=== PATIENT | female | born 1995 | race Caucasian/White ===

== ENCOUNTER 2019-09-16 14:38 | Emergency (ER) | payer BC, MEDICAID, SELFPAY ==
--- NOTE | ~2019-09-16 | XR_ITS ---
XR chest 2V DATE: 09/16/2019 15:21 INDICATION: Nonproductive cough, shortness of breath, fever TECHNIQUE: PA and lateral views COMPARISON: None FINDINGS: Normal heart size. No hilar or mediastinal enlargement. No pulmonary infiltrate or consolid ation, pleural effusion or pulmonary vascular congestion or pneumothorax. IMPRESSION: No active cardiopulmonary disease Reviewed, dictated and finalized at location B. OMER RELATIONS SPECIALIST
[2019-09-16 14:40] VITALS: BP 121/63; PULSE 123; RESP 30; TEMP 36.1; O2SAT 99
--- NOTE | 2019-09-16 14:44 | ECG_ITS ---
Measurements Intervals [place] Rate: 82 P: 48 [place]: 120 QRS: 56 QRSD: 89 T: 21 QT: 375 QTc: 439 Interpretive Statements SINUS RHYTHM BASELINE ARTIFACT- I, II, AVR NORMAL ECG Electronically Signed On 09-16-2019 19:36:58 TAILING MACHINE OPERATOR by Rob Seymour D.O.
[2019-09-16 14:56] LABS: Basophils Percent Auto 0.1 % (0.2-1.2); Eosinophils Percent Auto 0.1 % (0-4.4); Hematocrit 35.8 % (37.0-47.0); Hemoglobin 12.3 g/dL (12.0-15.0); Immature Granulocyte Absolute 0.08 K/mm3 (0.00-0.031); Immature Granulocyte Percent A 0.6 % (0-0.5); Lymphocytes Absolute Auto 0.65 K/mm3 (0.9-3.2); Lymphocytes Percent Auto 4.9 % (18.3-44.2); Mean Corpuscular HGB Conc 34.4 g/dl (32-36); Mean Corpuscular Hemoglobin 30.6 pg (26-34); Mean Corpuscular Volume 89.1 fl (80-100); Mean Platelet Volume 9.4 fl (7.4-10.4); Monocytes Absolute Auto 0.2 K/mm3 (0.1-0.6); Monocytes Percent Auto 1.7 % (2.6-8.5); Neutrophils Absolute Auto 12.4 K/mm3 (1.3-6.7); Neutrophils Percent Auto 92.6 % (45.5-73.1); Platelet Count Result 232 k/mm3 (150-375); Red Blood Count 4.02 M/mm3 (4.2-5.4); Red Cell Distribution Width 11.9 % (11.5-14.5); White Blood Count 13.3 K/mm3 (4.5-10.0)
[2019-09-16 15:03] LABS: Blood Urea Nitrogen 9 mg/dL (7-17); Calcium 9.5 mg/dL (8.4-10.2); Carbon Dioxide 19 mmol/L (22-30); Chloride 101 mmol/L (98-107); Estimated CRCL calculation 134 ml/min; Estimated Glomerular Filt Rate > 60; Glucose 155 mg/dL (65-105); Sodium 136 mmol/L (137-145)
--- NOTE | 2019-09-16 17:25 | ED.SOB ---
HPI - SOB/Dyspnea General Chief Complaint: Shortness of Breath/Dyspnea Stated Complaint: short of breath Time Seen by Provider: 09/16/19 17:11 Source: patient Mode of arrival: ambulatory Limitations: no limitations History of Present Illness HPI Narrative: The pt is a 24 y/o female who presents to the ED c/o SOB onset three days ago. Pt states that she has a PMHx of asthma, but is not particularly bad. She states that her condition did not improve, so she went to the office of her PAPER MACHINE TENDER, Dr. Magaña, who prescribed Azithromycin and Prednisone. These did not provide her relief. Pt reports hoarseness, cough, sneezing, and rhinorrhea, but denies sore throat. Pt states that she is 28 weeks currently. MD elicited complaint: shortness of breath Pertinent past history: asthma Onset (ago): day(s) (3) Relieving factors: nothing Known history of: asthma Associated symptoms: cough and other (Hoarseness, sneezing, rhinorrhea) Treatment prior to arrival: other (Antibiotics) Related Data Allergies Allergy/AdvReac Type Severity Reaction Status Date / Time No Known Allergies Allergy Verified 05/13/18 17:19 Review of Systems Review of Systems: All systems reviewed & are unremarkable except as noted in HPI and below ENT: Reports hoarseness, Reports nasal discharge (Rhinorrhea), Denies sore throat and Reports other (Sneezing) Respiratory: Respiratory: Reports cough and Reports dyspnea PMFSH Past Medical History Medical History (Updated 09/16/19 @ 18:28 by Gloria Palma MD) Asthma Bronchitis Scoliosis Surgical History Surgical History (Updated 09/16/19 @ 17:33 by Harvinder Uribe) No history of previous surgery Social History Social History (Updated 09/16/19 @ 17:34 by Harvinder Uribe) Smoking status: Smoker, status unknown Comments PAPER MACHINE TENDER: Dr. Magaña Exam Narrative: Exam Narrative: General appearance: Well-developed, well-nourished, looks comfortable, not labored breathing or any distress. Skin: Normal color Head: Normocephalic, nontraumatic Eyes: Clear conjunctiva ENT: Oropharynx normal, ears normal, nose normal Neck: Supple, nontender Chest and respiratory: Airway patent, no respiratory distress, no accessory muscle use, generalized wheezing bilaterally mainly during expiration Heart: Regular rate/rhythm Abdomen: Soft, nontender, no organomegaly, quiet bowel sounds Vascular: Normal peripheral pulses, normal capillary refill. Musculoskeletal: Normal range of motion, nontender back Neurologic: Alert and oriented ?3, LACING PRESSER is normal as tested, no gross motor deficit Course Course Emergency Course: Improving Vital Signs Vital signs: Vital Signs Temperature 36.1 C L 09/16/19 14:40 Pulse Rate 123 H 09/16/19 14:40 Respiratory Rate 30 H 09/16/19 14:40 Blood Pressure 121/63 09/16/19 14:40 Pulse Oximetry 99 09/16/19 14:40 Temperature 36.1 C L 09/16/19 14:40 Pulse Rate 91 09/16/19 18:07 Respiratory Rate 28 H 09/16/19 18:07 Blood Pressure 121/63 09/16/19 14:40 Pulse Oximetry 99 09/16/19 14:40 MDM - SOB/Dyspnea MDM Narrative Medical decision making narrative: Hyper respiratory viral infection is my concern superimposed with exacerbation of asthma. Influenza swab, labs, chest x-ray ordered. Further plan to follow Differential Diagnosis Differential diagnosis: Likely asthma with exacerbation and other (Upper respiratory viral infection) Lab Data Result diagrams: 09/16/19 14:46 09/16/19 14:46 Labs: Lab Results 09/16/19 09/16/19 Range/Units 14:46 14:46 WBC 13.3 H (4.5-10.0) K/mm3 RBC 4.02 L (4.2-5.4) M/mm3 Hgb 12.3 (12.0-15.0) g/dL Hct 35.8 L (37
[2019-09-16] MEDS: ALBUTEROL SULFATE NEB 2.5 MG/0.5 ML INH 5 MG INHALATION (17:52)
[2019-09-16] MEDS: methylPREDNISolone SOD SUCC 125 MG VIAL IV PUSH (17:53)
[2019-09-16 18:05] LABS: Alveolar/Arterial O2 Gradient 22.8 mmHg; Base Excess ABG -4.2 mEq/l (+/-2.0); Fractional Inspired Oxygen 21 %; HCO3 ABG 18.1 mEq/l (22.0-26.0); Oxygen Saturation ABG 97.7 % (95.0-100.0); PCO2 ABG 26.2 mmHg (35.0-45.0); PO2 ABG 95.6 mmHg (80.0-100.0); PO2 FiO2 Ratio Arterial Blood 4.55 %; Total Hemoglobin 13.3 g/dL (12.0-18.0); pH ABG 7.457 (7.350-7.450)
[2019-09-16 18:06] LABS: Device ROOM AIR; Site Drawn RIGHT BRACHIAL
[2019-09-16 18:07] VITALS: PULSE 91; RESP 28
[2019-09-16 19:42] VITALS: BP 114/65; PULSE 96; RESP 16; TEMP 36.7; O2SAT 96
== END 2019-09-16 19:45 | disposition home or self-care (01) ==
PROVIDERS: Emergency Medicine; Emergency Provider Emergency Medicine
DX: O99.512 Diseases of the respiratory system complicating pregnancy, second trimester (principal); J06.9 Acute upper respiratory infection, unspecified; J45.901 Unspecified asthma with (acute) exacerbation; Z3A.28 28 weeks gestation of pregnancy
CPT/HCPCS: 36415; 36600; 71046; 80048; 82805; 85025; 87804; 93005; 94640; 96374; 99284; J2930

== ENCOUNTER 2021-12-27 14:05 | Inpatient (IN) | payer OTHER, SELFPAY ==
[2021-12-27] VITALS (9 sets, daily range): BP systolic 127–146; BP diastolic 62–118; PULSE 76–88; RESP 18; TEMP 36.3–36.6; O2SAT 98; BMI 34.2
[2021-12-27] MEDS: OXYTOCIN 30 UNITS/NS 500 ML 30 UNITS/500 ML BAG 999 UNITS IV CONT (14:15)
[2021-12-27] MEDS: fentaNYL CITRATE INJ (*CRX) 100 MCG/2 ML VIAL 50 MCG IV PUSH (14:33)
[2021-12-27] MEDS: LIDOCAINE HCL 1% LOCAL INJ 10 ML VIAL (14:35)
[2021-12-27] MEDS: OXYTOCIN 30 UNITS/NS 500 ML 30 UNITS/500 ML BAG 125 UNITS IV CONT (14:45)
--- NOTE | 2021-12-27 14:45 | PM.IMHP ---
H&P: HPI History of Present Illness Date/Time: 12/27/21 14:45 Chief Complaint: Had baby Narrative: 26 y/o at 39 4/7 weeks. She had been a patient of mine several years ago, but transferred out. Her first baby was planned to be a water at [facility], but she wound up with an epidural. This was followed by a provider at [facility] as well. But she began having contractions this morning at 0800. Water broke at 1339 and contractions intensified. She delivered the baby on the kitchen floor at 1341. Placenta delivered at home, as well. She arrived at [facility] by EMS. Coincidentally, I am the on-call physician today. She says her has been uncomplicated to date. She says she takes no medications and that all testing has been normal. She says GBS neg. Review of Systems Review of Systems: All systems reviewed & are unremarkable except as noted in HPI and below PMFSH Past Medical History Medical History Asthma Bronchitis Scoliosis Surgical History Surgical History No history of previous surgery Family History Family History Grandparent Hypertension Social History Social History Smoking status: Never smoker Substance use: never Spiritual care concerns: No Meds Home Medications and Allergies Home Medications Medication Instructions Recorded Confirmed Type albuterol sulfate 90 mcg/actuation 2 puff inhalation QID #6.7 grams 09/16/19 Rx aerosol inhaler fluticasone propionate 50 2 spray intranasal DAILY #18.2 mL 09/16/19 Rx mcg/actuation nasal spray,suspension (Flonase Allergy Relief) prednisone 20 mg tablet 40 mg PO DAILY 5 days #10 tabs 09/16/19 Rx Allergies Allergy/AdvReac Type Severity Reaction Status Date / Time No Known Allergies Allergy Verified 05/13/18 17:19 Vital Signs Vital Signs - 24 hr 12/27/21 14:24 12/27/21 14:31 12/27/21 14:46 Pulse Rate 76 79 88 Blood Pressure 146/85 H 144/83 H 137/93 H Oxygen Delivery 12/27/21 15:01 12/27/21 15:31 12/27/21 15:46 Pulse Rate 86 82 87 Blood Pressure 132/62 142/118 H 140/85 Oxygen Delivery 12/27/21 15:30 Pulse Rate Blood Pressure Oxygen Delivery Room Air Exam Const: Orientation/consciousness: patient oriented x3 Other: Well-developed, well-nourished female in no acute distress. Neck: Thyroid: thyroid normal Lymphatic: no lymphadenopathy noted (in neck, axilla or inguinal nodes) Resp: Effort & Inspection: normal respiratory effort Auscultation: clear to auscultation bilaterally Cardio: Rate: regular rate Rhythm: regular rhythm Heart sounds: S1 normal heart sound present and S2 normal heart sound present GI: Other: ABD: Soft, nontender, fundus firm at umbilicus. No guarding or rebound tenderness. No hepatosplenomegaly. : General: Yes no CVA tenderness Other: Second degree perineal laceration. Exam of the area elicits yelling from the patient that is not commensurate with the pressure applied. Back/Spine/Pelvis: Back: no CVA tenderness Skin: General skin exam: normal color and no rashes or lesions noted Neuro: General: patient oriented x3 Extrem: Other: Extremities: nontender with no edema Psych: Mental Status: mental status grossly normal Affect: normal affect Assessment and Plan Assessment and plan (1) (normal spontaneous vaginal delivery): Code(s): O80 - Encounter for full-term uncomplicated delivery Status: Acute Assessment and Plan: A: Home delivery. care at an outside facility. Somewhat exaggerated pain response. P: Routine care. Check urine drug screen. Obtain labs.
--- NOTE | 2021-12-27 14:53 | WPDHPUPDATE1 ---
History and Physical Update Update Date/Time: 12/27/21 14:53 History and Physical has been reviewed, including an updated exam of the patient. There are NO changes in the patient's condition. Risks, benefits, and alternatives have been discussed and questions answered. Patient agrees to proceed with procedure.
--- NOTE | 2021-12-27 14:53 | PM.OBPRVD ---
OB - Delivery Note Procedure Delivery date: 12/27/21 Procedure: at home Induction method: None Route of delivery: Laceration Description: Perineal - 2nd Degree Delivery repair: vicryl (3-0) Specimen: Yes (placenta) Quantitative Blood Loss (ml): 243 Anesthesia type: Local (1% lidocaine to perineum) Disposition: PACU Complications: None Narrative: The patient was brought to [facility] via EMS after delivering baby and placenta at home unintentionally. She was given IV oxytocin on arrival. Perineum was inspected and a 2nd degree laceration was noted. This was infiltrated with 10mL 1% lidocaine and reapproximated using 3-0 Vicryl. The patient displayed a lot of yelling, indicating pain not commensurate with pressure / manipulation. Excellent hemostasis resulted, as did excellent reapproximation of the normal anatomy. Sponge and needle counts were correct. Mom and baby taken to recovery. Baby Date of : 12/27/21 Time of : 13:41 Weeks of gestation at delivery: 39 Infant gender: Male Weight (pounds): 8 Weight (ounces): 5 Placenta delivery description: Spontaneous, Normal Configuration and Delivered Out of Hospital Cord Vessel Description: 3 Vessels
--- NOTE | 2021-12-27 14:53 | PM.OBDSVD ---
DS: Admitting Diagnosis Discharge Date 12/28/21 Admitting Diagnosis Home delivery at term DS: Discharge Diagnosis Discharge Diagnosis (1) (normal spontaneous vaginal delivery): Code(s): O80 - Encounter for full-term uncomplicated delivery Status: Acute OB - DS: Summary OB Procedures : None OB Procedures Intrapartum: Spontaneous Vag Delivery OB Procedures: : None Time Spent with Patient Time attestation: Total time spent providing and/or coordinating discharge services: Discharge Plan Discharge Attending physician on discharge: Quinton Magaña Discharging Clinician: Quinton Magaña Patient Disposition: Home, Self-Care Activity: pelvic rest Diet: regular Discharge Instructions: Call or return if temperature above 100.4? F, increased abdominal pain, increased vaginal bleeding or any new problems. Stand Alone Forms: General Discharge Information Follow-up/Referrals: Quinton Magaña MD [Physician] - 6 Weeks Discharge Medications: New ibuprofen 600 mg tablet 600 mg PO Q6H PRN (Reason: cramps) Qty: 30 0RF Continued albuterol sulfate 90 mcg/actuation HFA aerosol inhaler 2 puff INHALATION QID Qty: 6.7 0RF prednisone 20 mg tablet 40 mg PO DAILY 5 Days Qty: 10 0RF fluticasone propionate [Flonase Allergy Relief] 50 mcg/actuation spray,suspension 2 spray NASAL DAILY Qty: 18.2 0RF Rx Instructions: administer into each nostril Date of admission: 12/27/21 14:05 Primary Care Provider: Hailey,Jenny Geronimo Admitting Provider: Quinton Magaña Attending physician on admission: Quinton Magaña Condition: Stable
--- NOTE | 2021-12-27 15:41 | LDADM ---
This patient, Eunice Kate, was admitted to Labor/Delivery/Recovery 105 on 12/27/21 at 14:05. Plans for labor, pain management and were discussed with patient. Patient/family oriented to hospital policies and general routines including ID bracelet, bed and alarms, visiting hours, pain management, procedures, bathroom and other care routines, personal items, smoking policy, room service/diet and guest tray routines, security routines, and visiting hours. Patient/Family are encouraged to report perceived risks to care and to ask questions if they do not understand what they are told or what they should do. See OBIX for further documentation.
[2021-12-27 16:21] LABS: Amphetamine Screen Urine Negative (Negative); Barbiturate Screen Urine Negative (Negative); Benzodiazepines Screen Urine Negative (Negative); Cannabinoid Screen Urine Negative (Negative); Cocaine Screen Urine Negative (Negative); Methadone Screen Urine Negative (Negative); Opiate Screen Urine Negative (Negative); Phencyclidine Screen Urine Negative (Negative)
[2021-12-27 16:25] LABS: Hematocrit 41.4 % (37.0-47.0); Hemoglobin 13.5 g/dL (12.0-15.0); Mean Corpuscular HGB Conc 32.6 g/dl (32-36); Mean Corpuscular Hemoglobin 29.4 pg (26-34); Mean Corpuscular Volume 90.2 fl (80-100); Mean Platelet Volume 10.1 fl (7.4-10.4); Platelet Count Result 245 k/mm3 (150-375); Red Blood Count 4.59 M/mm3 (4.2-5.4); Red Cell Distribution Width 12.4 % (11.5-14.5); White Blood Count 20.7 K/mm3 (4.5-10.0)
[2021-12-27] MEDS: BENZOCAINE 20% AER SPR (*SP) 56 GM CAN 1 SPRAY TOPICAL (16:46)
[2021-12-27] MEDS: WITCH HAZEL 40 PADS 1 PAD TOPICAL (16:46)
[2021-12-27] MEDS: IBUPROFEN 600 MG TABLET PO (16:51)
[2021-12-27 17:07] LABS: Band Neutrophils Percent 9 % (0-6); Lymphocytes Absolute Manual 2.07 K/mm3 (1.1-4.5); Monocytes Percent Manual 1 % (3-9); Neutrophils Absolute Manual 18.42 K/mm3 (1.7-7.2); Neutrophils Percent Manual 80 % (46-73); Platelet Estimate Adequate (Adequate); Total Cells Counted 100
--- NOTE | 2021-12-27 17:27 | OBPPTRN ---
Patient transferred to post room # 285 via wheelchair accompanied by and significant other. Support person and pt both recipients of instructions via one to one discussion, mom baby care guide and demonstrations this shift. No barriers to learning identified. Oriented to unit, room, information board, rooming in, admission packet and security measures. Patient verbalizes understanding.
[2021-12-27 17:39] LABS: HIV 1/2 Ab P24 Ag Result Negative (Negative)
[2021-12-28] MEDS: IBUPROFEN 600 MG TABLET PO ×3 (00:03→13:06)
[2021-12-28 04:15] VITALS: BP 112/58; PULSE 81; RESP 16; TEMP 36.6
[2021-12-28 04:37] LABS: Hematocrit 32.9 % (37.0-47.0); Hemoglobin 11.4 g/dL (12.0-15.0)
--- NOTE | 2021-12-28 06:30 | PC.NURSE ---
PT introductions made and plan of care discussed per post , pain management, breast feeding, daily care activities and pending discharge to home. PT received such instructions this shift via one to one discussion, mom baby care guide, demonstrations. PT and spouse both recipients of such instructions and no barriers to learning identified. PT verbalized understanding of such care.
[2021-12-28 06:45] VITALS: BP 113/62; PULSE 105; RESP 16; TEMP 36.8; O2SAT 97
[2021-12-28] MEDS: DOCUSATE SODIUM 100 MG CAPSULE PO (06:48)
[2021-12-28] MEDS: MULTIVIT/MIN/PREN/FOL AC/IRON TABLET 1 TAB PO (06:48)
[2021-12-28] MEDS: ACETAMINOPHEN 325 MG TABLET 650 MG PO ×2 (06:53→13:07)
[2021-12-28 11:19] LABS: Rapid Plasma Reagin Non-Reactive (NonReactive)
[2021-12-28 11:45] VITALS: BP 124/56; PULSE 76; RESP 16; TEMP 36.8; O2SAT 97
--- NOTE | 2021-12-28 14:38 | PC.NURSE ---
[id number] Introductions were made. Mother led the conversation with her experience, plan to feed her so far and her ability to independently latch infant optimally without discomfort. Reminded parents to use good handwashing technique to prevent infection. Mother is feeding appropriately for growth of infant and understands stimulating to eat if needed. Infant has had appropriate feedings in the last 24 hours meets the outcomes for weight, output and jaundice at this time. Mother states she is confident to continue effectively her at home or when to call for assistance and denies any additional assistance or education at this time. Reinforced understanding of milk production, transition of milk, signs of adequate intake, prevention/relief of engorgement, responsive after visualizing feeding cues, the different methods of stimulating to breastfeed 2-3 hours after the start of the last feeding, community resources, when to call a provider using the resource of the mom and baby guide. Mother voiced understanding of the education shared. Reported to the primary RN.
--- NOTE | 2021-12-28 17:04 | P.PNOB_ITS ---
OB - PN: Subj Subjective Date/time seen: 12/28/21 17:04 Narrative: Pain OK. Would like circumcision for son. Would like to go home. OB - PN: Obj Data Labs CBC & Chem 7: 12/28/21 04:29 Labs: Laboratory Results - last 24 hr 12/27/21 12/27/21 12/27/21 16:00 16:00 16:00 WBC 20.7 H RBC 4.59 Hgb 13.5 Hct 41.4 MCV 90.2 MCH 29.4 MCHC 32.6 RDW 12.4 Plt Count 245 MPV 10.1 Immature Gran % (Auto) Not Reportable Neut % (Auto) Not Reportable Lymph % (Auto) Not Reportable [place] % (Auto) Not Reportable Eos % (Auto) Not Reportable Baso % (Auto) Not Reportable Lymph # (Auto) Not Reportable [place] # (Auto) Not Reportable Eos # (Auto) Not Reportable Baso # (Auto) Not Reportable Abs Immat Gran (auto) Not Reportable Absolute Neuts (auto) Not Reportable Absolute Nucleated RBC Not Reportable Total Counted 100 Neutrophils % (Manual) 80 H Band Neutrophils % 9 H Lymphocytes % (Manual) 10.0 L Monocytes % (Manual) 1 L Nucleated RBC % Not Reportable Abs Neuts (Manual) 18.42 H Abs Lymphs (Manual) 2.07 Abs Monocytes (Manual) 0.20 Platelet Estimate Adequate RPR Non-reactive HIV 1&2 Ab/P24 Ag 4thGn Antibody Screen Negative 12/27/21 12/28/21 16:43 04:29 WBC RBC Hgb 11.4 L Hct 32.9 L MCV MCH MCHC RDW Plt Count MPV Immature Gran % (Auto) Neut % (Auto) Lymph % (Auto) [place] % (Auto) Eos % (Auto) Baso % (Auto) Lymph # (Auto) [place] # (Auto) Eos # (Auto) Baso # (Auto) Abs Immat Gran (auto) Absolute Neuts (auto) Absolute Nucleated RBC Total Counted Neutrophils % (Manual) Band Neutrophils % Lymphocytes % (Manual) Monocytes % (Manual) Nucleated RBC % Abs Neuts (Manual) Abs Lymphs (Manual) Abs Monocytes (Manual) Platelet Estimate RPR HIV 1&2 Ab/P24 Ag 4thGn Negative Antibody Screen OB - PN A/P Plan Comments: A: PPD#1, doing well. P: Reviewed circ. Home to f/u 6 weeks. Exam Psych: Other: AVSS ABD soft, nontender, fundus firm EXT nontender
--- NOTE | 2021-12-28 17:45 | PC.NURSE ---
PT received discharge instructions per protocol and verbalized understanding of such care.
--- NOTE | 2021-12-28 18:18 | PC.NURSE ---
Pt discharged to home ambulatory accompanied by significant other and and taken to waiting car. Follow up appts confirmed
== END 2021-12-28 18:18 | disposition home or self-care (01) | DRG 560 ==
LOC: ANHLDR 14:15 → ANHOB2 17:50
PROVIDERS: Admitting Provider Obstetrics & Gynecology; PCP Nurse Practitioner Family; Visit Provider Obstetrics & Gynecology
DX: O70.1 Second degree perineal laceration during delivery (principal)
CPT/HCPCS: 36415; 80307; 85014; 85018; 85025; 86592; 86703; 86850; 86900; 86901; 88307; A9270; G0432; J2590; J3010

== ENCOUNTER 2022-07-29 17:53 | Emergency (ER) | payer OTHER, SELFPAY ==
--- NOTE | ~2022-07-29 | XR_ITS ---
EXAMINATION: XR chest 2V Exam Date/Time: 07/29/2022 18:02 LIFE GUARD HISTORY: dyspnea, chest tightness, pmh asthma, SOB, SMOKER Comparison: 09/16/2019. RESULT: Lines, tubes, and devices: None. Lungs and pleura: Clear. Cardiomediastinal silhouette: Stable. Other: No acute osseous or upper abdominal finding. IMPRESSION: No acute cardiopulmonary process. Reviewed, dictated and finalized at location K. GUARD
[2022-07-29 18:07] VITALS: PULSE 118; RESP 24; TEMP 36.9; O2SAT 100
--- NOTE | 2022-07-29 18:40 | PC.NURSE ---
pt reports her hands feel better but states they're not right chest tightness has improved
--- NOTE | 2022-07-29 18:41 | ECG_ITS ---
Measurements Intervals [place] Rate: 91 P: 69 [place]: 108 QRS: 71 QRSD: 89 T: 46 QT: 341 QTc: 421 Interpretive Statements SINUS RHYTHM WITH SHORT [place] INTERVAL POSSIBLE LEFT ATRIAL ENLARGEMENT BORDERLINE ECG COMPARED TO ECG 09/16/2019 18:05:24 NO SIGNIFICANT CHANGES Electronically Signed On 07-30-2022 6:35:41 ALUMINUM SIDING MECHANIC by Rob Seymour D.O.
[2022-07-29 18:57] LABS: Basophils Percent Auto 0.4 % (0.2-1.2); Eosinophils Absolute Auto 0.2 K/mm3 (0-0.3); Eosinophils Percent Auto 2.5 % (0-4.4); Hematocrit 41.1 % (37.0-47.0); Hemoglobin 13.7 g/dL (12.0-15.0); Immature Granulocyte Absolute 0.01 K/mm3 (0.00-0.031); Immature Granulocyte Percent A 0.1 % (0-0.5); Lymphocytes Absolute Auto 0.59 K/mm3 (0.9-3.2); Lymphocytes Percent Auto 8.7 % (18.3-44.2); Mean Corpuscular HGB Conc 33.3 g/dl (32-36); Mean Corpuscular Hemoglobin 30.1 pg (26-34); Mean Corpuscular Volume 90.3 fl (80-100); Mean Platelet Volume 9.1 fl (7.4-10.4); Monocytes Absolute Auto 0.6 K/mm3 (0.1-0.6); Neutrophils Absolute Auto 5.3 K/mm3 (1.3-6.7); Neutrophils Percent Auto 79.3 % (45.5-73.1); Platelet Count Result 226 k/mm3 (150-375); Red Blood Count 4.55 M/mm3 (4.2-5.4); Red Cell Distribution Width 12.3 % (11.5-14.5); White Blood Count 6.8 K/mm3 (4.5-10.0)
[2022-07-29 19:07] LABS: Alanine Aminotransferase 20 U/L (6-35); Alkaline Phosphatase 91 U/L (38-126); Anion Gap 9 mmol/L (8-16); Aspartate Amino Transferase 24 U/L (14-36); Bilirubin,Total 0.8 mg/dL (0.2-1.3); Blood Urea Nitrogen 12 mg/dL (7-17); Carbon Dioxide 23 mmol/L (22-30); Chloride 101 mmol/L (98-107); Estimated CRCL calculation 115 ml/min; Estimated Glomerular Filt Rate > 60; Glucose 83 mg/dL (65-110); Potassium 3.5 mmol/L (3.4-5.0); Sodium 133 mmol/L (137-145)
[2022-07-29 19:32] LABS: Influenza A QL RT-PCR Negative (Negative); Influenza B QL RT-PCR Negative (Negative); SARS-CoV-2 RNA PCR Negative
--- NOTE | 2022-07-29 21:09 | ED.GENADULT ---
HPI - General Adult General Chief complaint: Shortness of Breath/Dyspnea Stated complaint: wheezing chest tightness, asthma Time Seen by Provider: 07/29/22 20:49 History of Present Illness HPI narrative: 27-year-old female history of asthma presented to the emergency department for evaluation of worsening shortness of breath. Patient states that she has had cough and congestion over the last few days. Patient also reports that her children have similar symptoms. While at work patient states she was having difficulty breathing and began to have numbness and tingling in her hands. Upon arrival to the emergency department staff stated that she was hyperventilating. Related Data Allergies Allergy/AdvReac Type Severity Reaction Status Date / Time No Known Allergies Allergy Verified 05/13/18 17:19 Review of Systems Review of Systems: CONSTITUTIONAL: Denies fever, chills, or sweats. EYES: Denies visual changes, redness, or discharge. ENT: Denies rhinorrhea, congestion, sore throat, or otalgia. CARDIOVASCULAR: Denies chest pain, palpitations, or edema. RESPIRATORY: Chest tightness and shortness of breath, see HPI GASTROINTESTINAL: Denies abdominal pain, nausea, vomiting, or diarrhea. GENITOURINARY: Denies dysuria or hematuria. SKIN: Denies rash or itching. MUSCULOSKELETAL: Denies back pain, joint pain, or myalgia. NEUROLOGIC: Denies headache, numbness, or weakness. PMFSH Past Medical History Medical History Asthma Bronchitis Scoliosis Surgical History Surgical History No history of previous surgery Family History Family History Grandparent Hypertension Social History Social History Smoking status: Never smoker Substance use: never Spiritual care concerns: No Exam Narrative: APPEARANCE: Well appearing, no pain, no distress, well-nourished. HEAD: normocephalic, atraumatic. EYES: PERRLA/EOMI, conjunctivae clear. NOSE: Normal no drainage NECK: Supple. No adenopathy, no masses. RESPIRATORY: Airway patent, respirations nonlabored. Wheezing in all lung joaquin CARDIOVASCULAR: Regular rate and rhythm without murmurs rubs or gallops. ABDOMINAL: Soft, nontender, nondistended, normal bowel sounds MUSCULOSKELETAL: Moves all extremities. Strength/ROM intact, No edema, No calf tenderness. NEURO: Alert. Cranial nerves II through XII intact. Grossly intact SKIN: Warm, dry. Normal Color Course Course Emergency Course: Patient was negative for COVID and flu. Patient reports fever at home but is afebrile here. Patient has no leukocytosis. Chest x-ray shows no acute cardiopulmonary abnormality. Patient has significant improvement of her breathing after the breathing treatment. Suspect a viral cause for her asthma exacerbation. Patient is currently breast-feeding and she improved with a breathing treatment only. Steroids were not started. Patient was advised to take Delsym for cough suppression as outpatient as this is safe with breast-feeding. All question concerns were addressed. Vital Signs Vital signs: Vital Signs Temperature 98.4 F 07/29/22 18:07 Pulse Rate 118 H 07/29/22 18:07 Respiratory Rate 24 H 07/29/22 18:07 Pulse Oximetry 100 07/29/22 18:07 Oxygen Delivery Room Air 07/29/22 18:07 Temperature 98.4 F 07/29/22 18:07 Pulse Rate 108 H 07/29/22 21:25 Respiratory Rate 20 07/29/22 21:25 Pulse Oximetry 98 07/29/22 21:20 Oxygen Delivery Room Air 07/29/22 21:20 Medical Decision Making Vital Signs Vital Signs: Vital Signs Temperature 98.4 F 07/29/22 18:07 Pulse Rate 118 H 07/29/22 18:07 Respiratory Rate 24 H 07/29/22 18:07 Pulse Oximetry 100 07/29/22 18:07 Oxygen Delivery Room Air 07/29/22 18:07 Temperature 98.4 F 07/29/22 18:07 Puls
[2022-07-29] MEDS: ALBUTEROL SULFATE NEB 2.5 MG/3 ML INH 5 MG INHALATION (21:14)
[2022-07-29 21:16] VITALS: PULSE 110; RESP 22
[2022-07-29 21:20] VITALS: O2SAT 98
--- NOTE | 2022-07-29 21:20 | PCRCNOTE ---
pt states that both her and her 7 month old both started exhibiting the same symptoms today- coughing, fever, and diarrhea. pt states that she feels as though she can not take a deep breath and is having numbness/tingling in her fingers currently.
[2022-07-29 21:25] VITALS: PULSE 108; RESP 20
[2022-07-29] MEDS: ACETAMINOPHEN 325 MG TABLET 650 MG PO (21:34)
[2022-07-29 22:13] VITALS: BP 139/86; PULSE 88; RESP 16; O2SAT 99
== END 2022-07-29 22:14 | disposition home or self-care (01) ==
PROVIDERS: Emergency Medicine; Emergency Provider Emergency Medicine; PCP Nurse Practitioner Family
DX: B34.9 Viral infection, unspecified (principal); J45.901 Unspecified asthma with (acute) exacerbation; Z20.822 Contact with and (suspected) exposure to COVID-19; Z79.51 Long term (current) use of inhaled steroids
CPT/HCPCS: 36415; 71046; 80053; 81025; 85025; 87636; 93005; 94640; 99283; A9270

== ENCOUNTER 2023-06-20 21:07 | Emergency (ER) | payer BC, MEDICAID, SELFPAY ==
--- NOTE | ~2023-06-20 | XR_ITS ---
XR foot LT min 3V DATE: 06/20/2023 21:30 INDICATION: Left foot pain. Pain at first metatarsal. No injury. TECHNIQUE: 4 views COMPARISON: None FINDINGS: Minimal plantar calcaneal enthesopathy. No fracture or dislocation, periosteal reaction or bone destruction. IMPRESSION: Minimal plantar calcaneal enthesopathy Reviewed, dictated and finalized at location [facility]
[2023-06-20 21:11] VITALS: BP 124/89; PULSE 74; RESP 18; TEMP 36.3; O2SAT 98
--- NOTE | 2023-06-20 22:23 | ED.LOWEXIN ---
HPI - Extremity Injury (Lower) General Chief Complaint: Extremity Injury, Lower Stated Complaint: L foot pain? Time Seen by Provider: 06/20/23 21:15 Source: patient Mode of arrival: ambulatory Limitations: no limitations History of Present Illness HPI Narrative: this is a 28-year-old female that presents to the emergency department for left foot pain. Ongoing over the last month. No known injury or trauma. Reports pain at the base of the great toe. Denies fever, erythema, edema, decreased range of motion or numbness. Related Data Allergies Allergy/AdvReac Type Severity Reaction Status Date / Time No Known Allergies Allergy Verified 06/20/23 21:07 Review of Systems Review of Systems: CONSTITUTIONAL: Denies fever SKIN: Denies rash or itching. MUSCULOSKELETAL: Reports joint pain, and myalgia. NEUROLOGIC: Denies numbness All systems reviewed & are unremarkable except as noted in HPI and below PMFSH Past Medical History Medical History Asthma Bronchitis Scoliosis Surgical History Surgical History No history of previous surgery Family History Family History Grandparent Hypertension Social History Social History Smoking status: Never smoker Substance use: never Spiritual care concerns: No Exam Narrative: GENERAL: Well-appearing, well-nourished, and in no acute distress. HEAD: Normocephalic, atraumatic. EYES: EOMI. EXTREMITIES: Normal range of motion. No edema, erythema or obvious deformity. Normal DP pulse. Normal sensation SKIN: Warm, dry, no rash. NEURO: No focal deficits. Alert and oriented x3. PSYCH: Normal mood and affect Course Course Emergency Course: Patient updated on workup and agrees with plan of care Vital Signs Vital signs: Vital Signs Temperature 97.3 F L 06/20/23 21:11 Pulse Rate 74 06/20/23 21:11 Respiratory Rate 18 06/20/23 21:11 Blood Pressure 124/89 06/20/23 21:11 Pulse Oximetry 98 06/20/23 21:11 Oxygen Delivery Room Air 06/20/23 21:11 Temperature 97.3 F L 11/24/23 21:11 Pulse Rate 74 06/20/23 21:11 Respiratory Rate 18 06/20/23 21:11 Blood Pressure 124/89 06/20/23 21:11 Pulse Oximetry 98 06/20/23 21:11 Oxygen Delivery Room Air 06/20/23 21:11 MDM - Extremity Injury (Lower) MDM Narrative Medical decision making narrative: Patient presents to the emergency department for left foot pain. No known injury or trauma. Ongoing over the last month. She is neurovascularly intact. Left foot x-rays without acute osseous abnormalities. Patient updated on workup. Instructed to rest, ice and take [id number] pain medication as needed. She is to follow up with Podiatry. She was given warnings to return to the ER Differential Diagnosis Differential diagnosis: Likely other ( Foot sprain, foot fracture) Imaging Data Radiologist's impression: ITS Impressions Foot X-Ray 06/20/23 21:33 IMPRESSION: Minimal plantar calcaneal enthesopathy Critical Care Time Critical Care Time Critical Care Time: No Discharge Plan Discharge Clinical Impression: Acute pain of left foot Patient Disposition: Home, Self-Care Condition: Stable Instructions: Metatarsalgia (DC) Additional Instructions: Return to the ER if you experience fever, redness and swelling of your extremity, numbness or any other symptoms that are concerning to you Wear postop shoe. Ice and elevate extremity. Tylenol or ibuprofen as needed for discomfort Your x-ray did not show any concerning findings. Follow up with podiatry for further care. Prescriptions: No Action albuterol sulfate 90 mcg/actuation HFA aerosol inhaler 2 puff INHALATION QID Qty: 6.7 0RF prednisone 20 mg tablet 40 mg PO DA
[2023-06-20 22:43] VITALS: BP 118/62; PULSE 72; RESP 15; O2SAT 100
== END 2023-06-20 22:44 | disposition home or self-care (01) ==
PROVIDERS: Emergency Provider Physician Assistant; PCP Nurse Practitioner Family
DX: M79.672 Pain in left foot (principal); J45.909 Unspecified asthma, uncomplicated; M77.8 Other enthesopathies, not elsewhere classified
CPT/HCPCS: 73630; 99283

== ENCOUNTER 2024-09-14 21:00 | Emergency (ER) | payer OTHER, SELFPAY ==
--- NOTE | ~2024-09-14 | XR_ITS ---
EXAM: XR foot RT min 3V DATE: 09/14/2024 21:23 HISTORY: painful right foot at 5th metatarsal base . COMPARISON: None available. FINDINGS: Normal mineralization. Subtle cortical irregularity along the medial and proximal aspect o f the fifth metatarsal metadiaphysis, just distal to the fourth-fifth metatarsal articulation, with a n associated incomplete, transverse linear lucency (seen best in the lateral oblique view). No lytic or blastic lesion. Joint spaces are maintained. Plantar enthesopathy. No erosion or periosteal change . Soft tissues within normal limits. IMPRESSION: Findings suspicious for an early, incomplete fifth metatarsal stress fracture. Reviewed, dictated and finalized at location K. E INSTRUCTOR
--- OUTSIDE RECORDS SUMMARY | 2024-09-14 21:02 | XMS_ITS | Clinical Summary ---
Author Organization [facility] Care Team Providers Care Car Chaser Name Role Phone Unavailable Primary Care Provider Unavailabl e Social History Tobacco Use Types Packs/Day Years Used Date Smoking Tobacco: Never Assessed Comments Unknown Sex and Gender Information Value Date Recorded Sex Assigned at Not on file Legal Sex Female 10:17 AM CDT Gender Identity Not on file Sexual Orientation Not on file Plan of Treatment Health Maintenance Due Date Last Done Comments Hepatitis C Virus (HCV) Screening 1994 Pap Smear 2015 Cervical Cancer Screening (CCS) 01/09/2024 HPV/Cotest 01/09/2024 Influenza Immunization (#1) 2024 05/22/2019 SARS-COV-2 Immunization ( season) 2024 Respiratory Syncytial Virus (RSV) Immunization (Adult) (1 - 1-dose 75+ series) 2069 Hepatitis B Immunization Completed 995, 1994, 1994 Meningococcal Immunization (ACWY) Aged Out 03/09/2009 No longer eligible based on patient's age to complete this topic DTaP/Tdap/Td Immunization Discontinued 2019, 03/13/2004, 09/04/1998, Additional history exists TdaP Immunization Completed 10/29/2019, 03/13/2004 Pneumococcal Immunization Combined Aged Out No longer eligible based on patient's age to complete this topic Rotavirus Immunization Aged Out No lo nger eligible based on patient's age to complete this topic
--- OUTSIDE RECORDS SUMMARY | 2024-09-14 21:02 | XMS_ITS | Clinical Summary ---
Author Organization [facility] Address [address] [place] [address] Care Team Providers Care Director Script Name Role Phone Jenny Hart ORTHOPEDIC PHYSICIAN ASSISTANT-HISTORIOGRAPHER Primary Care Provider Source Comments [facility],non-owned Affiliates and Associated Physician Practices is amultiple site organization consisting of ambulatory clinics and hospital sitesin [place], [place], [place] and [place]. This disclosure is being madepursuant to the Care Everywhere program and may not contain all information available regarding this patient. Last updated 18.[facility] Allergies No known active allergies Medications * Be aware that medications may not be up to date on this document. Alwaysverify current medications with the patient. Medication Sig Dispensed Refills Start Date End Date Status ibuprofen (MOTRIN) 600 MG tablet Take 1 Tab by mouth every 6 hours as needed for Pain (or Fever). 3 0 01/20/2011 Active Immunizations Name Administration Dates Next Due TDAP (7yrs+) 10/29/2019 Social History Tobacco Use Types Packs/Day Years Used Date Smoking Tobacco: Every Day Cigarettes Smokeless Tobacco: Never Alcohol Use Standard Drinks/Week Comments Not Currently 0 (1 standard drink = 0.6 oz pur e alcohol) Sex and Gender Information Value Date Recorded Sex Assigned at Not on file Gender Identity Not on file Sexual Orientation Not on file Last Filed Vital Signs Vital Sign Reading Time Taken Comments Blood Pressure 110/70 08/22/2020 7:30 PM [facility] Pulse 78 08/22/2020 4:03 PM [facility] Temperature 36.5 C (97.7 F) 08/22/2020 4:03 PM [facility] Respiratory Rate 20 08/22/2020 4:03 PM [facility] Oxygen Saturation 98% 08/22/2020 7:30 PM [facility] Inhaled Oxygen Concentration - - Weight 81.6 kg (180 lb) 08/22/2020 4:03 PM [facility] Height 170.2 cm (5' 7 ) 08/22/2020 4:03 PM [facility] Body Mass Index 28.19 08/22/2020 4:03 PM [facility] Plan of Treatment Health Maintenance Due Date Last Done Comments PAP SMEAR 1994 HEPATITIS C SCREENING 01/04/2012 HEPATITIS B VACCINE (1 of 3 - 19+ 3-dose series) 2013 PNEUMOCOCCAL VACCINE (1 of 2 - PCV) 2013 COVID-19 VACCINE (2023-2 5 season) 2024 INFLUENZA VACCINE (#1) 2024 DEPRESSION SCREENING 07/28/2024 DTAP/TDAP/TD VACCINES (2 - T d or Tdap) 10/28/2029 10/29/2019 ZOSTER VACCINE (1 of 2) 01/09/2044 HIV SCREENING Completed 08/22/2020 HIB VACCINE Aged Out No longer eligi ble based on patient's age to complete this topic HPV VACCINE Aged Out No longer eligi ble based on patient's age to complete this topic MENINGOCOCCAL (Group B) VACCINE Aged Out No longer eligible based on patient's age to complete this topic MENINGOCOCCAL VACCINE Aged Out No antonella bailey eligible based on patient's age to complete this topic Procedures Procedure Name Priority Date/Time Associated Diagnosis Comments HIV-1 HIV-2 ANTIGEN/ANTIBODY STAT 08/22/2020 6:32 PM [facility] from Last 3 Months or Most Recently Relevant to Health Maintenance Results * HIV-1 HIV-2 ANTIGEN/ANTIBODY (08/22/2020 6:32 PM [facility]) HIV Antigen/Antibod y 1 & 2 Non-reacti ve Non-react xochitl 08/22/2020 8:13 PM [facility] Comment:Neither HIV-1 p24 An tigen nor HIV-1/HIV-2 Antibodies are detected. Blood BLOOD SPECIMEN / Unknown Venipuncture / Unknown 08/22/2020 6:32 PM [facility] 08/22/2020 6:16 PM [facility] Kerwin Hernandez MD LAB - HEMATOLOGY ORD ERABLES Performing Organization Address City/State/[facility] Co de Phone Number [facility] [address] [place] [address], [facility] [[email or web address]] [phone] from Last 3 Months or Most Recently Relevant to Health Maintenance Care Teams Director Script Relationship Specialty Start Date End Date Jenny Hart, ORTHOPEDIC PHYSICIAN ASSISTANT-HISTORIOGRAPHER [address] [place] [address] PCP - General Nurse Practitioner Family 08/22/20
--- OUTSIDE RECORDS SUMMARY | 2024-09-14 21:02 | XMS_ITS | Continuity of Care Document ---
Author Organization [facility] Address [address] [place] [address] Care Team Providers Care Photograph Tinter Name Role Phone MIGUEL GALEANA Primary Care Provider [phone] Assessment No assessment recorded. Plan of Treatment Reminders Order Date Submit Date Provider Last Modified By Organization Details Last Modified Time Details Appointments None recorded. Lab cytology report, thin prep, smear or scraping, cervical or vaginal 2024 025 [facility], [address] [place] [address], [address], 12:16:45 Referral None recorded. Procedures None recorded. Surgeries None recorded. Imaging None recorded. Medication Orders None recorded. Patient TargetsNo targets recorded. Patient Instructions Encounter Date Encounter Id Patient Instructions Last Modified By Organization Details Last Modified Time 09/13/2024 [id number] A healthy lifestyle: care instructions [email or web address] Not available 09/13/2024 12:16:42 Your women's health annual exam today was unremarkable. Continue to practice breast self awareness like we discussed. Come back to the office with any breast changes, nipple discharge, change to your menstrual cycle, or with complaints of unusual odorous discharge. Otherwise, come back in 1 year for your next well woman annual exam. Do NOT douche as it disturbs the natural balance of bacteria in the vagina and can cause infection. Avoid scented soaps or lotions. Use a basic unscented soap for only the outer skin around your vagina. Wear cotton underwear, avoid thongs, avoid spandex, leggings and wear panty liners daily. You can try probiotics. Use a condom with EVERY sexual encounter to minimize your risk for sexually transmitted infection and unplanned . [email or web address] Not available 09/13/2024 12:16:51 Reason for Referral None Reported. Procedures Surgical History Date Name Laterality Status Provider Name and Address Organization Details Recorded Time 09/13/2024 Date of Last Pap Smear completed FRANSISCO REDMOND NP Attn: Accounting,[address] [facility], [place], [address], [facility] 09/13/2024 16:42:17 Imaging Results None recorded. Procedure Notes None recorded. Medical Equipment None Reported. Allergies No known drug allergies Medications Name Sig Start Date Stop Date Status Note LastModified by Organization Details LastModified Time azithromyci n 250 mg tablet TAKE 2 TABLETS BY MOUTH TODAY, THEN TAKE 1 TABLET DAILY FOR 4 DAYS DIRECTED 08/05 completed Not Available Not Available Not Available prednisone 20 mg tablet TAKE 2 TABLETS BY MOUTH EVERY DAY IN THE MORNING WITH BREAKFAST FOR 5 DAYS 08/05 completed Not Available Not Available Not Available benzonatate 100 mg capsule TAKE 1-2 CAPS BY MOUTH EVERY 8 HOURS NEEDED FOR COUGH FOR 5 DAYS 08/05 completed Not Available Not Available Not Available budesonide- formoterol HFA 160 mcg-4.5 mcg/actuati on aerosol inhaler INHALE 2 PUFFS BY MOUTH EVERY DAY active Not Available Not Available No t Available Airsupra 90 mcg-80 mcg/actuati on HFA aerosol inhaler INHALE 2 PUFFS BY MOUTH THREE TIMES DAILY NEEDED active Not Available Not Available No t Available Vitals Date Recorded Body height Body mass index (BMI) Body weight Respiratory rate Heart rate Systolic blood pressure Diastolic blood pressure Provider Name and Address Organization Details Last Updated DateTime 170.18 cm 26 kg/m2 74672.3 3 g 16 /min 70 /min 106 mm[Hg] 74 mm[Hg] Rosario Gonzales MA [facility] 12:07:55 Social History Question Answer Notes LastModified by Organizat ion Details LastModified Time Tobacco Smoking Status Former Smoker Tereza Azevedo MA null, [place] [facility] 08/05/2024 12:08:06 What Is Your Level Of Alcohol Consumption? Occasional Information not available 08/05/2024 Are You Blind Or Do You Have Difficulty Seeing? No Information not available 08/05/2024 What Is Your Level Of Caffeine Consumption? None Information not available 08/05/2024 Are You Currently Employed? Yes Information not available 08/05/2024 Are You Deaf Or Do You Have Serious Difficulty Hearing? No Information not available 08/05/2024 What Type Of Diet Are You Following? REGULAR Information not available 08/05/2024 Do You Or Have You Ever Used E-cigarettes Or Vape? 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 09/13/2024 Information not available 09/13/2024 How Many Children Do You Have? 0 Information not available 08/05/2024 What Is Your Current Pack Years? 10-19packyears Information not available 08/05/2024 What Is Your Relationship Status? Single Information not available 08/05/2024 Do You Use Your Seat Belt Or Car Seat Routinely? Yes Information not available 08/05/2024 Do You Have Smoke And Carbon Monoxide Detectors In Your Home? Yes Information not available 08/05/2024 At What Age Did You Start Smoking Tobacco? 14 Information not available 08/05/2024 Are You Passively Exposed To Smoke? No Information no t available 08/05/2024 Do You Or Have You Ever Used Smokeless Tobacco? Never Used Smokeless Tobacco Information not available 08/05/2024 How Much Tobacco Do You Smoke? 0.5 PPD Information not available 08/05/2024 Do You Feel Stressed (tense, Restless, Nervous, Or Anxious, Or Unable To Sleep At Night)? [id number] Information not available 08/05/2024 Do You Use Any Illicit Or Recreational Drugs? No Information not available 08/05/2024 Has Tobacco Cessation Counseling Been Provided? Yes Information not available 08/05/2024 On What Date Was Tobacco Cessation Counseling Provided? 09/13/2024 Information not available 09/13/2024 How Many Years Have You Smoked Tobacco? 14 Information not available 08/05/2024 Do You Or Have You Ever Used Any Other Forms Of Tobacco Or Nicotine? Yes [email or web address] Information not available 08/05/2024 Sex: Female Functional Status Question Answer Note LastModified by Organization D etails LastModified Time Are you able to care for yourself? Yes Information n ot available 08/05/2024 What is your exercise level? None Information not available 08/05/2024 Mental Status None recorded. Family History Relationship Description Onset Age of this Age Resolved Age Notes LastModified by Organization Details LastModified Time Paternal Grandmother Hypertensive disorder [email or web address] Not available 2024 12:07:00 Medical History Condition Response Coronary Artery Disease N Other N Atrial Fibrillation N High Blood Pressure N Thyroid Problems N Kidney or Bladder Problems N GI Problems N Depression N COPD N Blood Clots N Have you had a mammogram in the last yea r? N Eating Disorder N Skin Problems N Anemia N Heart Attack ([place]) N Anxiety Disorder N Diabetes N Muscle, Joint, or Bone Problems N Arthritis N Seizures/Epilepsy N Have you had a colonoscopy in the last 1 0 years? N Acid Reflux (GERD) N Cancer N Stroke N Asthma Y Allergies N Have you had a PSA blood test in the las t year? N ADHD N Substance Abuse N High Cholesterol N Hepatitis N Liver Disease N Schizophrenia N Headaches N Heart Failure N Osteoporosis N Gynecological History Statement/Question Response Flow Moderate Date of LMP 09/01/2024 Duration of Flow (days) 5 Age at Menarche 12 Current Control Method Condoms Frequency of Cycle (Q days) 27 Sexually Active? Y Menses Monthly Y Date of Last Pap Smear 09/13/2024 LMP Approximate Desired Control Method Condoms Obstetrics History GPAL:G 2 P 2 0 0 2 Type Value Full Term 2 Living 2 Total 2 Immunizations Vaccine Type Date Status Note Provider Lincoln sherman and Address Organization Details Recorded Time Influenza, split virus, quadrivalent, preservative 9 completed FRANSISCO REDMOND NP Attn: Accounting,[address] [facility], [place], [address], [place] [facility] 09/13/2024 12:01:52 IPV 9 completed FRANSISCO REDMOND NP Attn: Accounting,[address] [facility], [place], [address], [place] [facility] 09/13/2024 12:01:52 MMR 9 completed FRANSISCO REDMOND NP Attn: Accounting,[address] [facility], [place], [address], [place] [facility] 09/13/2024 12:01:52 MMR 8 completed FRANSISCO REDMOND NP Attn: Accounting,[address] [facility], [place], [address], [place] [facility] 09/13/2024 12:01:52 Tdap 2 completed FRANSISCO REDMOND NP Attn: Accounting,[address] [facility], [place], [place], [address] [place] [address], [facility] - [facility] 09/13/2024 12:01:52 Tdap 0 completed FRANSISCO REDMOND NP Attn: Accounting,[address] [facility], [place], [place], [address] [place] [address], [place] [facility] 09/13/2024 12:01:52 Tdap 4 completed FRANSISCO REDMOND NP Attn: Accounting,[address] [facility], [place], [place], [address] [place] [address], [place] [facility] 09/13/2024 12:01:52 OPV 4 completed FRANSISCO REDMOND NP Attn: Accounting,[address] [facility], [place], [place], [address] [place] [address], [place] [facility] 09/13/2024 12:01:53 OPV 4 completed FRANSISCO REDMOND NP Attn: Accounting,[address] [facility], [place], [address] [place] [address], [place] [facility] 09/13/2024 12:01:53 OPV 4 completed FRANSISCO REDMOND NP Attn: Accounting,[address] [facility], [place], [address], [place] [facility] 09/13/2024 12:01:53 HPV, quadrivalent 8 completed FRANSISCO REDMOND NP Attn: Accounting,[address] [facility], [place], [address], [place] [facility] 09/13/2024 12:01:53 HPV, quadrivalent 8 completed FRANSISCO REDMOND NP Attn: Accounting,[address] [facility], [place], [address], [place] [facility] 09/13/2024 12:01:53 HPV, quadrivalent 7 completed FRANSISCO REDMOND NP Attn: Accounting,[address] [facility], [place], [address], [place] [facility] 09/13/2024 12:01:53 Hep B, adolescent or pediatric 5 completed FRANSISCO REDMOND NP Attn: Accounting,[address] [facility], [place], [address], [place] [facility] 09/13/2024 12:01:53 Hep B, adolescent or pediatric 4 completed FRANSISCO REDMOND NP Attn: Accounting,[address] [facility], [place], [address], [place] [facility] 09/13/2024 12:01:53 Hep B, adolescent or pediatric 4 completed FRANSISCO REDMOND NP Attn: Accounting,[address] [facility], [place], [address], [place] [facility] 09/13/2024 12:01:53 Hep A, ped/adol, 2 dose 8 completed FRANSISCO REDMOND NP Attn: Accounting,[address] [facility], [place], [address], [place] [facility] 09/13/2024 12:01:53 Hep A, ped/adol, 2 dose 7 completed FRANSISCO REDMOND NP Attn: Accounting,[address] [facility], [place], [address], [place] [facility] 09/13/2024 12:01:53 meningococcal MCV4P 9 completed FRANSISCO REDMOND NP Attn: Accounting,[address] [facility], [place], [address], [facility] 09/13/2024 12:01:53 DTaP 9 completed FRANSISCO REDMOND NP Attn: Accounting,[address] [facility], [place], [address], [facility] - [facility] 09/13/2024 12:01:53 DTaP 4 completed FRANSISCO REDMOND NP Attn: Accounting,[address] [facility], [place], [address], [facility] - [facility] 09/13/2024 12:01:53 DTaP 5 completed FRANSISCO REDMOND NP Attn: Accounting,[address] [facility], [place], [address], [facility] - [facility] 09/13/2024 12:01:53 DTaP 4 completed FRANSISCO REDMOND NP Attn: Accounting,[address] [facility], [place], [address], [facility] - [facility] 09/13/2024 12:01:53 DTaP 4 completed FRANSISCO REDMOND NP Attn: Accounting,[address] [facility], [place], [address], [facility] - [facility] 09/13/2024 12:01:53 Influenza, split virus, quadrivalent, PF 1 completed FRANSISCO REDMOND NP Attn: Accounting,[address] [facility], [place], [address], [facility] 09/13/2024 12:01:53 Past Encounters Encounter ID Performer Location Encounter Start Date Encounter Closed Date Diagnosis/Indication Diagnosis SNOMED-CT Code Diagnosis ICD10 Code Diagnosis Note [id number] FRANSISCO REDMOND NP [facility] [address] [place] [address] 09/13/2024 11:24:15 09/13/2024 16:21:38 Gynecologic examination 24266631 Z01.419 Hand Hide Stretcher exam completedB reast and thyroid WNLDenies any family history of breast, ovarian, pancreatic , endometria l cancer 1. Pap+ HPV cotesting done; pt has no pap history2. STI screening {{complete d declined *}}.3. Pt is using {{condoms* FLIP patch ring prog estion only pill DMPA Nexplanon IUD BTL}} for control.4. Discussed breast self awareness5 . Educated on STI reduction and prevention . Encouraged condom use.6. Discussed when to return to clinic for /SCIENTIFIC RESEARCH MANAGER complaints . Contracept ion care management [id number] Z30.9 Contracept xochitl options were discussed. The patient would like to use {{condoms* FLIP patch ring prog estion only pill DMPA Nexplanon IUD}} Overweight [id number] E66 .3 Health Concerns Section Related Observation LastModified by Organization Detai ls LastModified Time None Recorded Concern Status LastModified by Organization Details LastModified Time None Recorded Payers Encounter Date Sequence Insurance Name Policy Number Policy Gonzalez Covered Member ID Gonzalez Member ID Guarantor Name 09/13/2024 1 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 Reports {{irregular regular *}} menstrual cycles with 5 days of {{light moderate* h eavy}} flow using 6-8 pads/tampon on their heaviest day. Denies any /SCIENTIFIC RESEARCH MANAGER complaints. Denies any breast changes/pain, fatigue/cold intolerance/hair loss/dry skin. Denies dyspareunia, pelvic pressure or bowel movement changes.Denies SOB/chest pain/dizziness. Denies any fever or chills. Denies any family history of breast, ovarian, endometrial or pancreatic cancer. LMP: 09/01/2024Last pap smear: unknownPap due: TodayPatient is currently sexually active with 1 male partner and has had 1 male partner in the past 10 years.Current contraception is {{condoms* FLIP patc h ring progestion only pill DMPA Nexplanon IUD BTL}}Patient is {{happy* unhappy}} with method{{Desires Dec lines*}} STI testing today. FRANSISCO REDMOND NP Attn: Accounting,[address] [place], [address], [facility], [facility] 09/13/2024 16:21:35 OBGyn Episode No OBEpisode recorded.
--- OUTSIDE RECORDS SUMMARY | 2024-09-14 21:02 | XMS_ITS | Referral Summary ---
Author Organization [facility] Address [address] [place] [address] Care Team Providers Care Roguer Name Role Phone Jenny Hart ECHOCARDIOGRAPHY TECHNOLOGIST-INCOME TAX PREPARER Primary Care Provider Source Comments [facility],non-owned Affiliates and Associated Physician Practices is amultiple site organization consisting of ambulatory clinics and hospital sitesin [place], [place], [place] and [place]. This disclosure is being madepursuant to the Care Everywhere program and may not contain all information available regarding this patient. Last updated 18.[facility] Allergies No known active allergies Medications * [...] Comments Blood Pressure 110/70 08/22/2020 7:30 PM BRANCH SERVICE LEADER Pulse 78 08/22/2020 4:03 PM BRANCH SERVICE LEADER Temperature 36.5 C (97.7 F) 08/22/2020 4:03 PM BRANCH SERVICE LEADER Respiratory Rate 20 08/22/2020 4:03 PM BRANCH SERVICE LEADER Oxygen Saturation 98% 08/22/2020 7:30 PM BRANCH SERVICE LEADER Inhaled Oxygen Concentration - - Weight 81.6 kg (180 lb) 08/22/2020 4:03 PM BRANCH SERVICE LEADER Height 170.2 cm (5' 7 ) 08/22/2020 4:03 PM BRANCH SERVICE LEADER Body Mass Index 28.19 08/22/2020 4:03 PM BRANCH SERVICE LEADER Plan of Treatment Not on file Procedures Procedure Name Priority Date/Time Associated Diagnosis Comments HIV-1 HIV-2 ANTIGEN/ANTIBODY STAT 08/22/2020 6:32 PM BRANCH SERVICE LEADER from Last 3 Months or Most Recently Relevant to Health Maintenance Results * HIV-1 HIV-2 ANTIGEN/ANTIBODY (08/22/2020 6:32 PM BRANCH SERVICE LEADER) HIV Antigen/Antibod y 1 & 2 Non-reacti ve Non-react xochitl 08/22/2020 8:13 PM BRANCH SERVICE LEADER [facility] Comment:Neither HIV-1 p24 An tigen nor HIV-1/HIV-2 Antibodies are detected. Blood BLOOD SPECIMEN / Unknown Venipuncture / Unknown 08/22/2020 6:32 PM BRANCH SERVICE LEADER 08/22/2020 6:16 PM BRANCH SERVICE LEADER Kerwin Hernandez MD LAB - HEMATOLOGY ORD ERABLES [facility] [address] [place] [address], [facility] [phone] from Last 3 Months or Most Recently Relevant to Health Maintenance Care Teams Roguer Relationship Specialty Start Date End Date Jenny Hart, ECHOCARDIOGRAPHY TECHNOLOGIST-INCOME TAX PREPARER [address] [place] [phone] PCP - General Nurse Practitioner Family 08/22/20
--- OUTSIDE RECORDS SUMMARY | 2024-09-14 21:02 | XMS_ITS | Patient Health Summary ---
Author Organization [facility] Address [address] [place] [address] Care Team Providers Care Aircraft Electrician Name Role Phone Jenny Hart WOODEN BOAT BUILDER-TANK TRUCK OPERATOR Primary Care Provider Note from [facility],non-owned Affiliates and Associated Physician Practices is amultiple site organization consisting of ambulatory clinics and hospital sitesin [place], [place], [place] and [place]. This disclosure is being madepursuant to the Care Everywhere program and may not contain all information available regarding this patient. Last updated 18.[facility] Allergies No known active allergies Medications * Be aware that medications may not be up to date on this document. Alwaysverify current medications with the patient. * ibuprofen (MOTRIN) 600 MG tablet(Started 01/20/2011) Take 1 Tab by mouth every 6 hours as needed for Pain (or Fever). Immunizations * TDAP (7yrs+)(Given 10/29/2019) Social History Tobacco Use Types Packs/Day Years [...] Comments Blood Pressure 110/70 08/22/2020 7:30 PM PROP MAKING SUPERVISOR Pulse 78 08/22/2020 4:03 PM PROP MAKING SUPERVISOR Temperature 36.5 C (97.7 F) 08/22/2020 4:03 PM PROP MAKING SUPERVISOR Respiratory Rate 20 08/22/2020 4:03 PM PROP MAKING SUPERVISOR Oxygen Saturation 98% 08/22/2020 7:30 PM PROP MAKING SUPERVISOR Inhaled Oxygen Concentration - - Weight 81.6 kg (180 lb) 08/22/2020 4:03 PM PROP MAKING SUPERVISOR Height 170.2 cm (5' 7 ) 08/22/2020 4:03 PM PROP MAKING SUPERVISOR Body Mass Index 28.19 08/22/2020 4:03 PM PROP MAKING SUPERVISOR Procedures * CARDIAC EKG ORDER(Performed 08/23/2020) * TROPONIN I(Performed 08/22/2020) * COMPREHENSIVE METABOLIC PANEL(Performed 08/22/2020) * CBC W AUTO DIFFERENTIAL(Performed 08/22/2020) * HIV-1 HIV-2 ANTIGEN/ANTIBODY(Performed 08/22/2020) * XR CHEST 2VW(Performed 08/22/2020) Performed for Chest pain, unspecified type * EKG 12-LEAD(Performed 08/22/2020) Performed for Chest pain, unspecified type * STREP A SCREEN DIRECT(Performed 01/20/2011) * XR SCOLIOSIS 1VW(Performed 09/01/2009) Performed for Unspecified Backache Results * CARDIAC EKG ORDER (08/23/2020 1:39 PM PROP MAKING SUPERVISOR) Narrative 08/23/2020 1:39 PM PROP MAKING SUPERVISOR Ordered by an unspecified provider. Scanned Document CARDIAC SERVICES ORD ERABLES * HIV-1 HIV-2 ANTIGEN/ANTIBODY (08/22/2020 6:32 PM PROP MAKING SUPERVISOR) HIV Antigen/Antibod y 1 & 2 Non-reacti ve Non-react xochitl 08/22/2020 8:13 PM PROP MAKING SUPERVISOR [facility] Comment:Neither HIV-1 p24 An tigen nor HIV-1/HIV-2 Antibodies are detected. Blood BLOOD SPECIMEN / Unknown Venipuncture / Unknown 08/22/2020 6:32 PM PROP MAKING SUPERVISOR 08/22/2020 6:16 PM PROP MAKING SUPERVISOR Kerwin Hernandez MD LAB - HEMATOLOGY ORD ERABLES [address] [address], [facility] [phone] * TROPONIN I (08/22/2020 6:32 PM PROP MAKING SUPERVISOR) Pathologist [facility] Troponin I <0.010 <0.032 ng/mL 08/22/2020 7:23 PM [facility] Blood BLOOD SPECIMEN / Unknown Venipuncture / Unknown 08/22/2020 6:32 PM PROP MAKING SUPERVISOR 08/22/2020 6:16 PM PROP MAKING SUPERVISOR Sheryl Glover APRN-TANK TRUCK OPERATOR LAB - CHEMISTRY ORDERABLES Performing Organization Address [facility]/ZIP Co de Phone Number [address] [address], [facility] [phone] * (ABNORMAL) CBC W AUTO DIFFERENTIAL (08/22/2020 6:32 PM PROP MAKING SUPERVISOR) [facility] WBC 7.2 3.5 - 10.5 10 3/uL 08/22/2020 6:50 PM [facility] RBC 4.77 3.90 - 5.00 10 6/uL 08/22/2020 6:50 PM [facility] Hemoglobin 14.3 12.0 - 15.5 g/dL 08/22/2020 6:50 PM [facility] Hematocrit 43.5 35.0 - 45.0 % 08/22/2020 6:50 PM [facility] MCV 91.2 81.0 - 97.0 fL 08/22/2020 6:50 PM [facility] MCH 30.0 28.0 - 34.0 pg 08/22/2020 6:50 PM [facility] MCHC 32.9 32.0 - 36.0 g/dL 08/22/2020 6:50 PM [facility] Platelet Count 300 150 - 400 10 3/uL 08/22/2020 6:50 PM [facility] RDW-SD 40.5 36.0 - 50.0 fL 08/22/2020 6:50 PM [facility] RDW-CV 12.0 11.2 - 14.8 % 08/22/2020 6:50 PM [facility] MPV 9.5 9.3 - 12.8 fL 08/22/2020 6:50 PM [facility] nRBC Absolute 0.00 0 10 3/uL 08/22/2020 6:50 PM [facility] nRBC Auto 0.0 0 /100 WBC 08/22/2020 6:50 PM [facility] Neutrophils % 54.0 35.0 - 70.0 % 08/22/2020 6:50 PM [facility] Lymphocytes % 30.5 19.7 - 55.1 % 08/22/2020 6:50 PM [facility] Monocytes % 7.6 3.0 - 15.0 % 08/22/2020 6:50 PM [facility] Eosinophils % 7.2(H) 0.0 - 6.0 % 08/22/2020 6:50 PM [facility] Basophil % 0.4 0.0 - 1.5 % 08/22/2020 6:50 PM [facility] Neutrophils Absolute 3.9 1.6 - 7.0 10 3/uL 08/22/2020 6:50 PM [facility] Lymphocyte Absolute 2.2 0.8 - 2.9 10 3/uL 08/22/2020 6:50 PM [facility] Monocytes Absolute 0.55 0.14 - 0.66 10 3/uL 08/22/2020 6:50 PM [facility] Eosinophils Absolute 0.52(H) 0.00 - 0.45 10 3/uL 08/22/2020 6:50 PM [facility] Basophils Absolute 0.03 0.00 - 0.06 10 3/uL 08/22/2020 6:50 PM [facility] Immature Granulocytes % 0.3 0.0 - 1.0 % 08/22/2020 6:50 PM [facility] Blood BLOOD SPECIMEN / Unknown Venipuncture / Unknown 08/22/2020 6:32 PM PROP MAKING SUPERVISOR 08/22/2020 6:16 PM [facility] Sheryl Glover WOODEN BOAT BUILDER-TANK TRUCK OPERATOR LAB - HEMATOLOGY ORDERABLES [facility] [address] [place] [id number], [facility] [phone] * COMPREHENSIVE METABOLIC PANEL (08/22/2020 6:32 PM [facility]) BUN 14 7 - 26 mg/dL 08/22/2020 7:10 PM [facility] Creatinine 0.7 0.6 - 1.2 mg/dL 08/22/2020 7:10 PM [facility] Sodium 140 136 - 145 mmol/L 08/22/2020 7:10 PM [facility] Potassium 4.0 3.5 - 4.5 mmol/L 08/22/2020 7:10 PM [facility] Chloride 106 98 - 107 mmol/L 08/22/2020 7:10 PM [facility] CO2 24 22 - 29 mmol/L 08/22/2020 7:10 PM [facility] Glucose 89 70 - 115 mg/dL 08/22/2020 7:10 PM [facility] Calcium 9.2 8.4 - 10.2 mg/dL 08/22/2020 7:10 PM [facility] Protein Total 7.2 6.0 - 8.3 g/dL 08/22/2020 7:10 PM [facility] Albumin 4.2 3.4 - 5.0 g/dL 08/22/2020 7:10 PM [facility] Bilirubin Total 0.5 0.2 - 1.2 mg/dL 08/22/2020 7:10 PM [facility] Alkaline Phosphatase 97 40 - 150 Units/L 08/22/2020 7:10 PM [facility] ALT 12 0 - 55 Units/L 08/22/2020 7:10 PM [facility] AST 16 5 - 34 Units/L 08/22/2020 7:10 PM [facility] Anion Gap 14 8 - 18 08/22/2020 7:10 PM [facility] BUN/Creatinine Ratio 20 7 - 23 08/22/2020 7:10 PM [facility] Osmolality Calculated 290 270 - 300 mOsm/kg 08/22/2020 7:10 PM PROP MAKING SUPERVISOR [facility] Albumin/Globulin Ratio 1.4 1.1 - 2.3 08/22/2020 7:10 PM [facility] eGFR >60 >60 mL/min/1.7 3 m2 08/22/2020 7:10 PM PROP MAKING SUPERVISOR [facility] Blood BLOOD SPECIMEN / Unknown Venipuncture / Unknown 08/22/2020 6:32 PM PROP MAKING SUPERVISOR 08/22/2020 6:16 PM PROP MAKING SUPERVISOR Sheryl Glover WOODEN BOAT BUILDER-TANK TRUCK OPERATOR LAB - CHEMISTRY ORDERABLES [facility] [address] [place] [address], [facility] [phone] * XR CHEST 2VW (08/22/2020 5:46 PM PROP MAKING SUPERVISOR) Anatomical Region Laterality Modality Chest Radiographic Rakel ging 08/22/2020 6:26 PM PROP MAKING SUPERVISOR Impressions 08/23/2020 9:19 AM PROP MAKING SUPERVISOR IMPRESSION: No acute pulmonary process. Dictated by Hipolito Krueger MD (Resident). Dr. ISHA Choi M.D. have personally reviewed and interpreted this examination/study. This report was electronically signed by ISHA GRANT M.D. on 08/23/2020 9:19 AM . Narrative 08/23/2020 9:19 AM PROP MAKING SUPERVISOR EXAMINATION: XR CHEST 2VW HISTORY: R07.9: Chest pain, unspecified type COMPARISON: No prior study is available for comparison. FINDINGS: There is no focal consolidation, pleural effusion, or pneumothorax. The cardiomediastinal silhouette is normal. The visible bony thorax is intact. Procedure Note Isha Grant MD - 08/23/2020 EXAMINATION: XR CHEST 2VW HISTORY: R07.9: Chest pain, unspecified type COMPARISON: No prior study is available for comparison. FINDINGS: There is no focal consolidation, pleural effusion, or pneumothorax. The cardiomediastinal silhouette is normal. The visible bony thorax is intact. IMPRESSION: No acute pulmonary process. Dictated by Hipolito Krueger MD (Resident). I, Dr. ISHA GRANT M.D. have personally reviewed and interpreted this examination/study. This report was electronically signed by ISHA GRANT M.D. on 08/23/2020 9:19 AM . Sheryl Glover WOODEN BOAT BUILDER-TANK TRUCK OPERATOR DIAGNOSTIC IMAGI NG ORDERABLES * EKG 12-LEAD (08/22/2020 4:14 PM PROP MAKING SUPERVISOR) Ventricular Rate 75 BPM [facility] Atrial Rate 75 BPM [facility] P-R Interval 112 ms [facility] QRS Duration ms 82 ms [facility] Q-T Interval ms 392 ms [facility] QTC Calculation (Bezet) 437 ms [facility] Calculated P [place] 40 degrees [facility] Calculated R [place] 62 degrees [facility] Calculated T [place] 29 degrees [facility] Interpretation EKG NORMAL SINUS RHYTHM NORMAL ECG NO PREVIOUS ECGS AVAILABLE Confirmed by Mary Lazaro ([id number]) on 08/23/2020 9:14:36 PM [facility] MUSE 08/22/2020 4:14 PM PROP MAKING SUPERVISOR 08/23/2020 9:14 PM PROP MAKING SUPERVISOR Kerwin Hernandez MD ECG ORDERABLES [facility] MUSE * (ABNORMAL) STREP A SCREEN DIRECT (01/20/2011 5:15 PM CDT) Strep A Rapid POSITIVE(A ) Neg Grp A Beta Strep [facility] ENTIRE THROAT (SURFACE REGION OF NECK) / Unknown 01/20/2011 5:15 PM CDT 01/20/2011 5:19 PM CDT Kerwin Cardoza MD LAB - MICROBIOLOGY O RDBENEDICTO [facility] [address] [address] * XR SPINE SCOLIOSIS 1 VIEW STANDING (09/01/2009 8:59 AM PROP MAKING SUPERVISOR) Anatomical Region Laterality Modality Spine Other 09/01/2009 8:59 AM PROP MAKING SUPERVISOR Narrative 09/01/2009 4:15 PM PROP MAKING SUPERVISOR Exam- AP and lateral views of the spine History- Backache Findings- A left T2-T10 scoliosis of 8.8 degrees is seen. A right T10-L2 scoliosis of 7.6 degrees is seen. Radiopaque artifact in the midabdomen appears to be a piercing. A pars defect of L5 is suspected. Impression- Left scoliosis of the thoracic spine of less than 10 degrees. Right scoliosis of the thoracolumbar spine of less than 10 degrees. Suspected pars defect of L5. Recommend oblique views of the lumbar spine. Keira Sheffield MD (resident). Darío ISRAEL MD Releasing Jeanette ISRAEL MD Released Date Time- 09/01/091615 [employer] Recruiterbrian SHEFFIELD MD ADM- JANIS,YRIS S ATT- JANIS,YRIS S ORD- JANIS,YRIS S CON- PCP- JOSELYN QURESHI SCP- Procedure Note Sarah Israel MD, MD - 09/01/2009 Exam- AP and lateral views of the spine History- Backache Findings- A left T2-T10 scoliosis of 8.8 degrees is seen. A right T10-L2 scoliosis of 7.6 degrees is seen. Radiopaque artifact in the midabdomen appears to be a piercing. A pars defect of L5 is suspected. Impression- Left scoliosis of the thoracic spine of less than 10 degrees. Right scoliosis of the thoracolumbar spine of less than 10 degrees. Suspected pars defect of L5. Recommend oblique views of the lumbar spine. Keira Sheffield MD (resident). Darío RadiologistWendie ISRAEL MD Releasing Jeanette ISRAEL MD Released Date Time- 09/01/091615 Healthcare Recruiterbrian SHEFFIELD MD ADM- JANIS,YRIS Valenzuela ATT- JANIS,YRIS S ORD- JANIS,YRIS S LAURA- PCP- JOSELYN QURESHI- Yris Rawls MD DIAGNOSTIC IMAGING O [facility] Care Teams Aircraft Electrician Relationship Specialty Start Date End Date Jenny Hart, WOODEN BOAT BUILDER-TANK TRUCK OPERATOR [address] [place] [phone] PCP - General Nurse Practitioner Family 08/22/20
[2024-09-14 21:07] VITALS: BP 148/71; PULSE 68; RESP 16; TEMP 36.7; O2SAT 98
--- NOTE | 2024-09-14 21:11 | ED.GENADULT ---
HPI - General Adult General Chief complaint: Extremity Injury, Lower Stated complaint: LOWER EXTREMITY PROBLEM Time Seen by Provider: 09/14/24 21:02 History of Present Illness HPI narrative: Eunice is a 29F with a PMH of asthma that was brought into the ED by her father with a painful right foot. She denies any trauma or fall but went to step on it earlier and it was very TTP on the superior medial foot. Related Data Allergies Allergy/AdvReac Type Severity Reaction Status Date / Time No Known Allergies Allergy Verified 06/20/23 21:07 Review of Systems Review of Systems: All systems reviewed & are unremarkable except as noted in HPI and below PMFSH Past Medical History Medical History Scoliosis Bronchitis Asthma Surgical History Surgical History No history of previous surgery Family History Family History Grandparent Hypertension Social History Social History Smoking status: Never smoker Substance use: never Spiritual care concerns: No Exam Const: General: cooperative, healthy appearing, comfortable, no acute distress, well developed, alert, awake and Physically active Orientation/consciousness: oriented to person, oriented to place and oriented to time HENMT: Head: normal to inspection, normocephalic and atraumatic Ears: hearing grossly normal bilaterally and external ears normal Face/Nose/Sinus: Normal external nose present Eyes: General: appearance normal, both eyes and all related structures Periorbital: periorbital findings normal Sclera: sclerae normal Pupils: Equal, round and reactive pupils present Neck: Neck: normal visual inspection Chest: Chest palpation & inspection: normal inspection of the chest Resp: Effort & Inspection: normal respiratory effort, able to speak in complete sentences and no respiratory distress Cardio: Jugular venous distension: no JVD Skin: General skin exam: normal color and no rashes or lesions noted Neuro: General: oriented to person, oriented to place and oriented to time Cranial nerves: Yes Equal, round and reactive pupils present Extrem: General: normal to inspection Other: No TTP on the right lower leg. No TTP over the achilles. No TTP of the toes. The right superior midfoot and base of the right 5th metatarsal were very TTP Course Course Emergency Course: toradol for pain. Ordered radiographs. EXAM: XR foot RT min 3V DATE: 09/14/2024 21:23 HISTORY: painful right foot at 5th metatarsal base . COMPARISON: None available. FINDINGS: Normal mineralization. Subtle cortical irregularity along the medial and proximal aspect of the fifth metatarsal metadiaphysis, just distal to the fourth-fifth metatarsal articulation, with an associated incomplete, transverse linear lucency (seen best in the lateral oblique view). No lytic or blastic lesion. Joint spaces are maintained. Plantar enthesopathy. No erosion or periosteal change. Soft tissues within normal limits. IMPRESSION: Findings suspicious for an early, incomplete fifth metatarsal stress fracture. Placed in post op shoe and instructed to f/u with her PCP Vital Signs Vital signs: Vital Signs Temperature 98.0 F 09/14/24 21:07 Pulse Rate 68 09/14/24 21:07 Respiratory Rate 16 09/14/24 21:07 Blood Pressure 148/71 H 09/14/24 21:07 Pulse Oximetry 98 09/14/24 21:07 Oxygen Delivery Room Air 09/14/24 21:07 Temperature 98.0 F 09/14/24 21:07 Pulse Rate 68 09/14/24 21:07 Respiratory Rate 16 09/14/24 21:07 Blood Pressure 148/71 H 09/14/24 21:07 Pulse Oximetry 98 09/14/24 21:07 Oxygen Delivery Room Air 09/14/24 21:07 Medical Decision Making Vital Signs Vital Signs: Vital Signs Temperature 98.0 F 09/14/24 21:07 Pulse Rate 68 09/14/24 21:07 Respiratory Rate 16 09/14/24 21:07 Blood Pressure 148/71 H 09/14/24 21:07 Pulse Oximetry 98 09/14/24 21:07 Oxygen Delivery Room Air 09/14/24 21:07 Temperature 98.0 F 09/14/24 21:07 Pulse Rate 68 09/14/24 21:07 Respiratory Rate 16 09/14/24 21:07 Blood Pressure 148/71 H 09/14/24 21:07 Pulse Oximetry 98 09/14/24 21:07 Oxygen Delivery Room Air 09/14/24 21:07 Discharge Plan Discharge Clinical Impression: Fracture of fifth metatarsal bone Patient Disposition: Home, Self-Care Condition: Stable Instructions: Suspected Fracture (ED) Patient Language: Nicaraguan Prescriptions: No Action albuterol sulfate 90 mcg/actuation HFA aerosol inhaler 2 puff INHALATION QID Qty: 6.7 0RF prednisone 20 mg tablet 40 mg PO DAILY 5 Days Qty: 10 0RF fluticasone propionate [Flonase Allergy Relief] 50 mcg/actuation spray,suspension 2 spray NASAL DAILY Qty: 18.2 0RF Rx Instructions: administer into each nostril ibuprofen 600 mg tablet 600 mg PO Q6H PRN (Reason: cramps) Qty: 30 0RF Follow-up/Referrals: Jenny Hart APRN [Primary Care Provider] -
[2024-09-14] MEDS: KETOROLAC 30 MG/ML VIAL (*BKC) IM (21:23)
--- OUTSIDE RECORDS SUMMARY | 2024-09-14 21:50 | XMS_ITS | Referral Summary ---
Author Organization [facility] Address [address] [place] [address] Care Team Providers Care Sound Tester Name Role Phone Jenny Hart LOG SORTER-MASK INSPECTOR Primary Care Provider Source Comments [facility],non-owned Affiliates and Associated Physician Practices is amultiple site organization consisting of ambulatory clinics and hospital sitesin [place], [place], [place] and [place]. This disclosure is being madepursuant to the Care Everywhere program and may not contain all information available regarding this patient. Last updated 18.[facility] [employer] Allergies No known active allergies Medications * [...] Comments Blood Pressure 110/70 08/22/2020 7:30 PM RETAIL CUSTOMER SERVICE SPECIALIST Pulse 78 08/22/2020 4:03 PM RETAIL CUSTOMER SERVICE SPECIALIST Temperature 36.5 C (97.7 F) 08/22/2020 4:03 PM RETAIL CUSTOMER SERVICE SPECIALIST Respiratory Rate 20 08/22/2020 4:03 PM RETAIL CUSTOMER SERVICE SPECIALIST Oxygen Saturation 98% 08/22/2020 7:30 PM RETAIL CUSTOMER SERVICE SPECIALIST Inhaled Oxygen Concentration - - Weight 81.6 kg (180 lb) 08/22/2020 4:03 PM RETAIL CUSTOMER SERVICE SPECIALIST Height 170.2 cm (5' 7 ) 08/22/2020 4:03 PM RETAIL CUSTOMER SERVICE SPECIALIST Body Mass Index 28.19 08/22/2020 4:03 PM RETAIL CUSTOMER SERVICE SPECIALIST Plan of Treatment Not on file Procedures Procedure Name Priority Date/Time Associated Diagnosis Comments HIV-1 HIV-2 ANTIGEN/ANTIBODY STAT 08/22/2020 6:32 PM RETAIL CUSTOMER SERVICE SPECIALIST from Last 3 Months or Most Recently Relevant to Health Maintenance Results * HIV-1 HIV-2 ANTIGEN/ANTIBODY (08/22/2020 6:32 PM RETAIL CUSTOMER SERVICE SPECIALIST) HIV Antigen/Antibod y 1 & 2 Non-reacti ve Non-react xochitl 08/22/2020 8:13 PM RETAIL CUSTOMER SERVICE SPECIALIST [facility] Comment:Neither HIV-1 p24 An tigen nor HIV-1/HIV-2 Antibodies are detected. Blood BLOOD SPECIMEN / Unknown Venipuncture / Unknown 08/22/2020 6:32 PM RETAIL CUSTOMER SERVICE SPECIALIST 08/22/2020 6:16 PM RETAIL CUSTOMER SERVICE SPECIALIST Kerwin Hernandez MD LAB - HEMATOLOGY ORD ERABLES [facility] [address] [place] [address], [facility] [place] [phone] from Last 3 Months or Most Recently Relevant to Health Maintenance Care Teams Sound Tester Relationship Specialty Start Date End Date Jenny Hart, LOG SORTER-MASK INSPECTOR [address] [place] [phone] PCP - General Nurse Practitioner Family 08/22/20
--- OUTSIDE RECORDS SUMMARY | 2024-09-14 21:50 | XMS_ITS | Data Portability ---
Author Organization [facility] SIMÓNAshu Address [address] [facility] / [place] [address] Care Team Providers Care Trim Machine Adjuster Name Role Phone MIGUEL SANCHEZ Primary Care Provider Assessment No assessment recorded. Plan of Treatment Reminders Order Date Submit Date Provider Last Modified By Organization Details Last Modified Time Details Appointments None recorded. Lab cytology report, thin prep, smear or scraping, cervical or vaginal 2024 025 [facility], [address] [facility] [address], [place], [address], 5 12:16:45 CBC 2024 025 [facility], [address] [facility] [address], [place], [address], 5 09:13:53 CMP, serum or plasma 2024 025 [facility], [address] [place] [address] 2, [place], [address], 5 09:13:51 lipid panel, serum 2024 025 [facility], [address] [facility], [facility], [place], [address], 5 09:13:49 HbA1c (hemoglobi n A1c), blood 2024 025 [facility] In-Office Order, Internal Use Only DO Not Attach Compendium DO Not Attach Compendium, Do Not Delete/merge, [id number] 12:35:45 Referral None recorded. Procedures None recorded. Surgeries None recorded. Imaging None recorded. Medication Orders albuterol 90 mcg-budeso nide 80 mcg/actuat ion HFA aerosol inhaler 2024 025 [id number], [address], [place], [id number], 12:22:11 Symbicort 160 mcg-4.5 mcg/actuat ion HFA aerosol inhaler 2024 025 [id number], [address], [place], [id number], 12:22:07 Patient TargetsNo targets recorded. Patient Instructions Encounter Date Encounter Id Patient Instructions Last Modified By Organization Details Last Modified Time 08/05/2024 [id number] A healthy lifestyle: care instructions [email or web address] Not available 08/05/2024 12:23:38 09/13/2024 [id number] A healthy lifestyle: care instructions [email or web address] Not available 09/13/2024 12:16:42 Your women's health [...] for sexually transmitted infection and unplanned . [email or web address] Not available 09/13/2024 12:16:51 Reason for Referral None Reported. Results Created Date Observation Date Name Description Value Unit Range Abnormal Flag Note LastModifiedBy Organization Detail LastModifiedTime 08/05/1908/06/2024 LIPID PANEL cholesterol, total 167 mg/dL 100-19 9 Not Available [address], [address], 08/06/2024 09:13:49 08/05/1908/06/2024 LIPID PANEL triglyceride s 130 mg/dL 0-149 Not Available [address], [address], 08/06/2024 09:13:49 08/05/1908/06/2024 LIPID PANEL HDL cholesterol 57 mg/dL >39 Not Available [address], [address], 08/06/2024 09:13:49 08/05/1908/06/2024 LIPID PANEL VLDL cholesterol chloé 23 mg/dL 5-40 Not Available [address], [address], 08/06/2024 09:13:49 08/05/1908/06/2024 LIPID PANEL LDL chol calc (nih) 87 mg/dL 0-99 Not Available [address], [address], 08/06/2024 09:13:49 08/05/1908/06/2024 COMP. METAB OLIC PANEL (14) glucose 93 mg/dL 70-99 Not Available [address], [address], 08/06/2024 09:13:50 08/05/1908/06/2024 COMP. METAB OLIC PANEL (14) BUN 17 mg/dL 6-20 Not Available [address], [address], 08/06/2024 09:13:50 08/05/1908/06/2024 COMP. METAB OLIC PANEL (14) creatinine 0.75 mg/dL 0.57-1 .00 Not Available [address], [address], 08/06/2024 09:13:50 08/05/19 25 08/06/2024 COMP. METAB OLIC PANEL (14) eGFR 110 mL/mi n/1.7 3 >59 Not Available [address], [address], 08/06/2024 09:13:50 08/05/19 25 08/06/2024 COMP. METAB OLIC PANEL (14) BUN/creatini ne ratio 23 9-23 Not Available [address], [address], 08/06/2024 09:13:50 08/05/19 25 08/06/2024 COMP. METAB OLIC PANEL (14) sodium 141 mmol/ L 134-14 4 Not Available [address], [address], 08/06/2024 09:13:50 08/05/19 25 08/06/2024 COMP. METAB OLIC PANEL (14) potassium 4.0 mmol/ L 3.5-5. 2 Not Available [address], [address], 08/06/2024 09:13:50 08/05/19 25 08/06/2024 COMP. METAB OLIC PANEL (14) chloride 107 mmol/ L 96-106 above high normal Not Available [address], [address], 08/06/2024 09:13:50 08/05/19 25 08/06/2024 COMP. METAB OLIC PANEL (14) carbon dioxide, total 22 mmol/ L 20-29 Not Available [address], [address], 08/06/2024 09:13:50 08/05/19 25 08/06/2024 COMP. METAB OLIC PANEL (14) calcium 8.7 mg/dL 8.7-10 .2 Not Available [address], [address], 08/06/2024 09:13:50 08/05/1908/06/2024 COMP. METAB OLIC PANEL (14) protein, total 6.4 g/dL 6.0-8. 5 Not Available [address], [address], 08/06/2024 09:13:50 08/05/1908/06/2024 COMP. METAB OLIC PANEL (14) albumin 4.3 g/dL 4.0-5. 0 Not Available [address], [address], 08/06/2024 09:13:50 08/05/1908/06/2024 COMP. METAB OLIC PANEL (14) globulin, total 2.1 g/dL 1.5-4. 5 Not Available [address], [address], 08/06/2024 09:13:50 08/05/1908/06/2024 COMP. METAB OLIC PANEL (14) bilirubin, total 0.6 mg/dL 0.0-1. 2 Not Available [address], [address], 08/06/2024 09:13:50 08/05/1908/06/2024 COMP. METAB OLIC PANEL (14) alkaline phosphatase 57 IU/L 44-121 Not Available [address], [address], 08/06/2024 09:13:50 08/05/19 25 08/06/2024 COMP. METAB OLIC PANEL (14) AST (SGOT) 13 IU/L 0-40 Not Available [address], [address], 08/06/2024 09:13:50 08/05/19 25 08/06/2024 COMP. METAB OLIC PANEL (14) ALT (SGPT) 11 IU/L 0-32 Not Available [address], [address], 08/06/2024 09:13:50 08/05/1908/06/2024 CARDI OVASC ULAR REPOR T interpretati on Note Suppl ement al repor t is avail able. Not Available [address], [address], 08/06/2024 09:13:52 08/05/1908/06/2024 CARDI OVASC ULAR REPOR T pdf . Not Available [address], [address], 08/06/2024 09:13:52 08/05/1908/06/2024 CBC, PLATE LET, NO DIFFE RENTI AL WBC 6.7 x10e3 /uL 3.4-10 .8 Not Available [address], [address], 08/06/2024 09:13:53 08/05/1908/06/2024 CBC, PLATE LET, NO DIFFE RENTI AL RBC 4.62 x10e6 /uL 3.77-5 .28 Not Available [address], [address], 08/06/2024 09:13:53 08/05/1908/06/2024 CBC, PLATE LET, NO DIFFE RENTI AL hemoglobin 13.7 g/dL 11.1-1 5.9 Not Available [facility] & [address], [address], 08/06/2024 09:13:53 08/05/1908/06/2024 CBC, PLATE LET, NO DIFFE RENTI AL hematocrit 41.5 % 34.0-4 6.6 Not Available [address], [address], 08/06/2024 09:13:53 08/05/1908/06/2024 CBC, PLATE LET, NO DIFFE RENTI AL MCV 90 fL 79-97 Not Available [address], [address], 08/06/2024 09:13:53 08/05/1908/06/2024 CBC, PLATE LET, NO DIFFE RENTI AL MCH 29.7 pg 26.6-3 3.0 Not Available [address], [address], 08/06/2024 09:13:53 08/05/1908/06/2024 CBC, PLATE LET, NO DIFFE RENTI AL MCHC 33.0 g/dL 31.5-3 5.7 Not Available [address], [address], 08/06/2024 09:13:53 08/05/1908/06/2024 CBC, PLATE LET, NO DIFFE RENTI AL RDW 12.3 % 11.7-1 5.4 Not Available [address], [address], 08/06/2024 09:13:53 08/05/1908/06/2024 CBC, PLATE LET, NO DIFFE RENTI AL platelets 290 x10e3 /uL 150-45 0 Not Available [address], [address], 08/06/2024 09:13:53 08/05/19 25 08/05/2024 HbA1c (hemo globi n A1c), blood HbA1c 5.2 Not Available In-Office Order Internal Use Only DO Not Attach Compendium DO Not Attach Compendium, Do Not Delete/merge, [id number] 08/05/2024 12:23:26 Result Notes None recorded. Procedures Surgical History Date Name Laterality Status Provider Name and Address Organization Details Recorded Time 09/13/2024 Date of Last Pap Smear completed FRANSISCO REDMOND NP Attn: Accounting,[address] [facility], [place], [address], [facility] 09/13/2024 16:42:17 Imaging Results None recorded. Procedure [...] No t Available Vitals Date Recorded Body weight Body mass index (BMI) Body height Oxygen saturation Oxygen saturation in Arterial blood by Pulse oximetry Heart rate Systolic blood pressure Diastolic blood pressure Provider Name and Address Organization Details Last Updated DateTime 5 41218.9 2 g 26.4 kg/m2 170.18 cm 97 % 97 % 71 /min 95 mm[Hg] 61 mm[Hg] Tereza Azevedo [place] [facility] 5 12:11:07 Date Recorded Body height Body mass index (BMI) Body weight Respiratory rate Heart rate Systolic blood pressure Diastolic blood pressure Provider Name and Address Organization Details Last Updated DateTime 170.18 cm 26 kg/m2 43859.3 3 g 16 /min 70 /min 106 mm[Hg] 74 mm[Hg] Rosario Gonzales MA [facility] 12:07:55 Social History Question Answer Notes LastModified by Organizat ion Details LastModified Time Tobacco Smoking Status Former Smoker Tereza Azevedo MA null, [place] [facility] 08/05/2024 12:08:06 What Is Your Level Of [...] not available 08/05/2024 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 [id number] Information not available 08/05/2024 Do You Use [...] Other Forms Of Tobacco Or Nicotine? Yes Information not available 08/05/2024 Sex: Female Functional [...] Problems N Kidney or Bladder Problems N Depression N COPD N Blood Clots N GI Problems N Have you had a mammogram in the last yea r? N Skin Problems N Eating Disorder N Anemia N Heart Attack (ME) N Diabetes N Anxiety Disorder N Muscle, Joint, or Bone Problems N Seizures/Epilepsy N Have you had a colonoscopy in the last 1 0 years? N Arthritis N Acid Reflux (GERD) N Cancer N Stroke N Allergies N Asthma Y Have you had a PSA blood test in the las t year? N ADHD N Substance Abuse N High Cholesterol N Hepatitis N Liver Disease N Schizophrenia N Headaches N Osteoporosis N Heart Failure N Gynecological History Statement/Question Response Flow Moderate [...] Immunizations Vaccine Type Date Status Note Provider Nam e and Address Organization Details Recorded Time Influenza, split virus, quadrivalent, preservative 9 completed FRANSISCO REDMOND NP Attn: Accounting,[address] [facility], [place], [address], [place] [facility] 09/13/2024 12:01:52 IPV 9 completed FRANSISCO REDMOND NP Attn: Accounting,[address] [facility], [place], [address], [place] [facility] 09/13/2024 12:01:52 MMR 9 completed FRANSISCO REDMOND NP Attn: Accounting,[address] [facility], [place], [address], [place] [facility] 09/13/2024 12:01:52 MMR 8 completed FRANSISCO REDMOND NP Attn: Accounting,[address] [facility], [place], [address], [place] [facility] 09/13/2024 12:01:52 Tdap 2 completed FRANSISCO REDMOND NP Attn: Accounting,[address] [facility], [place], [address], [place] [facility] 09/13/2024 12:01:52 Tdap 0 completed FRANSISCO REDMOND NP Attn: Accounting,[address] [facility], [place], [address], [place] [facility] 09/13/2024 12:01:52 Tdap 4 completed FRANSISCO REDMOND NP Attn: Accounting,[address] [facility], [place], [address], [place] [facility] 09/13/2024 12:01:52 OPV 4 completed FRANSISCO REDMOND NP Attn: Accounting,[address] [facility], [place], [address], [place] [facility] 09/13/2024 12:01:53 OPV 4 completed FRANSISCO REDMOND NP Attn: Accounting,[address] [facility], [place], [address], [place] [facility] 09/13/2024 12:01:53 OPV 4 completed FRANSISCO REDMOND NP Attn: Accounting,[address] [facility], [place], [address], [place] [facility] 09/13/2024 12:01:53 HPV, quadrivalent 8 completed FRANSISCO REDMOND NP Attn: Accounting,[address] [facility], [place], [address], [place] [facility] 09/13/2024 12:01:53 HPV, quadrivalent 8 completed FRANSISCO REDMOND NP Attn: Accounting,[address] [facility], [place], [address], [place] [facility] 09/13/2024 12:01:53 HPV, quadrivalent 7 completed FRANSISCO REDMOND NP Attn: Accounting,[address] [facility], [place], [address], [place] [facility] 09/13/2024 12:01:53 Hep B, adolescent or pediatric 5 completed FRANSISCO REDMOND NP Attn: Accounting,[address] [facility], [place], [address], [place] [facility] 09/13/2024 12:01:53 Hep B, adolescent or pediatric 4 completed FRANSISCO REDMOND NP Attn: Accounting,[address] [facility], [place], [address], [place] [facility] 09/13/2024 12:01:53 Hep B, adolescent or pediatric 4 completed FRANSISCO REDMOND NP Attn: Accounting,[address] [facility], [place], [address], [place] [facility] 09/13/2024 12:01:53 Hep A, ped/adol, 2 dose 8 completed FRANSISCO REDMOND NP Attn: Accounting,[address] [facility], [place], [place], [address] [place] [address], [place] [facility] 09/13/2024 12:01:53 Hep A, ped/adol, 2 dose 7 completed FRANSISCO REDMOND NP Attn: Accounting,[address] [facility], [place], [place], [address] [place] [address], [place] [facility] 09/13/2024 12:01:53 meningococcal MCV4P 9 completed FRANSISCO REDMOND NP Attn: Accounting,[address] [facility], [place], [place], [address] [place] [address], [place] [facility] 09/13/2024 12:01:53 DTaP 9 completed FRANSISCO REDMOND NP Attn: Accounting,[address] [facility], [place], [place], [address] [place] [address], [place] [facility] 09/13/2024 12:01:53 DTaP 4 completed FRANSISCO REDMOND NP Attn: Accounting,[address] [facility], [place], [place], [address] [place] [address], [place] [facility] 09/13/2024 12:01:53 DTaP 5 completed FRANSISCO REDMOND NP Attn: Accounting,[address] [facility], [place], [place], [address] [place] [address], [place] [facility] 09/13/2024 12:01:53 DTaP 4 completed FRANSISCO REDMOND NP Attn: Accounting,[address] [facility], [place], [address], [place] [facility] 09/13/2024 12:01:53 DTaP 4 completed FRANSISCO REDMOND NP Attn: Accounting,[address] [facility], [place], [address], [place] [facility] 09/13/2024 12:01:53 Influenza, split virus, quadrivalent, PF 1 completed FRANSISCO REDMOND NP Attn: Accounting,[address] [facility], [place], [address], [place] [facility] 09/13/2024 12:01:53 Past Encounters Encounter ID Performer Location Encounter Start Date Encounter Closed Date Diagnosis/Indication Diagnosis SNOMED-CT Code Diagnosis ICD10 Code Diagnosis Note [id number] Miguel Sanchez PA-C [facility] [address] [place] [address] 08/05/2024 11:50:58 08/06/2024 12:39:22 Moderate persistent asthma 605668881 J45.40 Overweight 549577010 E66 .3 Adult heal th examination 215921044 Z00.00 [id number] FRANSISCO REDMOND NP [facility] [address] [place] [address] 09/13/2024 11:24:15 09/13/2024 16:21:38 Gynecologic examination 40676660 Z01.419 Sewing Techniques Demonstrator exam completedB reast and thyroid WNLDenies any [...] Discussed when to return to clinic for /HOGSHEAD WEIGHER complaints . Contracept ion care management 546909375 Z30.9 Contracept xochitl options were discussed. The patient would like to use {{condoms* FLIP patch ring prog estion only pill DMPA Nexplanon IUD}} Overweight 522164177 E66 .3 Health Concerns Section Related Observation LastModified by Organization Detai ls LastModified Time None Recorded Concern Status LastModified by Organization Details LastModified Time None Recorded Advance Directives Directive None Recorded Payers Encounter Date Sequence Insurance Name Policy Number Policy Gonzalez Covered Member ID Gonzalez Member ID Guarantor Name 08/05/[address] [facility] Eunice Kate [id number] 1 Eunice Kate 09/13/[address] [facility] Eunice Kate [id number] Eunice Kate Notes Date Note Type Note Provider Name and Address Organization Details Recorded Time 08/05/2024 text/html new patient...ne eds refills of inhalers...wants labs also Miguel Sanchez PA-C Attn: Accounting,[address] [facility], [place], [address], 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 Reports {{irregular regular *}} menstrual cycles with 5 days of {{light moderate* h eavy}} flow using 6-8 pads/tampon on their heaviest day. Denies any /HOGSHEAD WEIGHER complaints. Denies any breast changes/pain, fatigue/cold intolerance/hair [...] today. FRANSISCO REDMOND NP Attn: Accounting,[address] [place], [address], [facility] 09/13/2024 16:21:35 OBGyn Episode Ob Episode Information Episode Created Date Number of Fetuses Patient Bloodtype Patient rh Status Prepregnancy Weight lbs Domestic Partner Domestic Partner Phone Father Name Rn Invasive Status 08/05/19 25 1 CLOSED Fetus Data First Name Last Name Admitted to NICU Weight (g) Sex Living Outcome Pediatric Complications Fetus ID Race Codes Race Delivery Type Full Term [id number] Juan Pablo Calculation Initial Juan Pablo Date Initial Exam Date Initial Exam Provider Initial Ultrasound Date Last Menstrual Period Date Ultra Sound Weeks Gestation 0 Eighteen To Twenty Week Juan Pablo Update Ultra Sound Date Fundal Height At Umbil Quickening Date Ultra Sound Latest Weeks Gestation Final Juan Pablo Confirmed By Final Juan Pablo Confirmed Date Final Juan Pablo Date Ultra Sound Latest Days Gestation 0 0 Menstrual History Last Menstrual Date Menses Monthly On Bcp Conception Prior Menses Frequency Hcg Plus Date Menarche Onset Age Delivery Information Delivery Date Delivery Type Labor Anesthesia Weeks Gestation Incision Type Labor Labor Length Hrs Delivered By Post Complications Tubal Sterilization Discharge Date Comments 2 Discharge Information Feeding Method Contraceptive Method Maternal HG B and HCT Levels Ob Episode Information Episode Created Date Number of Fetuses Patient Bloodtype Patient rh Status Prepregnancy Weight lbs Domestic Partner Domestic Partner Phone Father Name Rn Invasive Status 08/05/19 25 1 CLOSED Fetus Data First Name Last Name Admitted to NICU Weight (g) Sex Living Outcome Pediatric Complications Fetus ID Race Codes Race Delivery Type Full Term [id number] Juan Pablo Calculation Initial Juan Pablo Date Initial Exam Date Initial Exam Provider Initial Ultrasound Date Last Menstrual Period Date Ultra Sound Weeks Gestation 0 Eighteen To Twenty Week Juan Pablo Update Ultra Sound Date Fundal Height At Umbil Quickening Date Ultra Sound Latest Weeks Gestation Final Juan Pablo Confirmed By Final Juan Pablo Confirmed Date Final Juan Pablo Date Ultra Sound Latest Days Gestation 0 0 Menstrual History Last Menstrual Date Menses Monthly On Bcp Conception Prior Menses Frequency Hcg Plus Date Menarche Onset Age Delivery Information Delivery Date Delivery Type Labor Anesthesia Weeks Gestation Incision Type Labor Labor Length Hrs Delivered By Post Complications Tubal Sterilization Discharge Date Comments 0 Discharge Information Feeding Method Contraceptive Method Maternal HG B and HCT Levels
--- OUTSIDE RECORDS SUMMARY | 2024-09-14 21:50 | XMS_ITS | Clinical Summary ---
Author Organization [facility] Care Team Providers Care Sewing Line Baler Name Role Phone Unavailable Primary Care Provider [...]
--- OUTSIDE RECORDS SUMMARY | 2024-09-14 21:50 | XMS_ITS | Patient Health Summary ---
Author Organization [facility] Address [address] [place] [address] Care Team Providers Care Singing Messenger Name Role Phone Jenny Hart TOOL TURRET LATHE SET UP OPERATOR-CONCENTRATOR OPERATOR Primary Care Provider Note from [facility],non-owned Affiliates and Associated Physician Practices is amultiple site organization consisting of ambulatory clinics and hospital sitesin [place], [place], [place] and [place]. This disclosure is being madepursuant to the Care Everywhere program and may not contain all information available regarding this patient. Last updated 18.[facility] Allergies No known active allergies Medications * [...] Comments Blood Pressure 110/70 08/22/2020 7:30 PM TIRE SPECIALIST Pulse 78 08/22/2020 4:03 PM TIRE SPECIALIST Temperature 36.5 C (97.7 F) 08/22/2020 4:03 PM TIRE SPECIALIST Respiratory Rate 20 08/22/2020 4:03 PM TIRE SPECIALIST Oxygen Saturation 98% 08/22/2020 7:30 PM TIRE SPECIALIST Inhaled Oxygen Concentration - - Weight 81.6 kg (180 lb) 08/22/2020 4:03 PM TIRE SPECIALIST Height 170.2 cm (5' 7 ) 08/22/2020 4:03 PM TIRE SPECIALIST Body Mass Index 28.19 08/22/2020 4:03 PM TIRE SPECIALIST Procedures * CARDIAC EKG ORDER(Performed 08/23/2020) * [...] * CARDIAC EKG ORDER (08/23/2020 1:39 PM TIRE SPECIALIST) Narrative 08/23/2020 1:39 PM TIRE SPECIALIST Ordered by an unspecified provider. Scanned Document CARDIAC SERVICES ORD ERABLES * HIV-1 HIV-2 ANTIGEN/ANTIBODY (08/22/2020 6:32 PM TIRE SPECIALIST) HIV Antigen/Antibod y 1 & 2 Non-reacti ve Non-react xochitl 08/22/2020 8:13 PM TIRE SPECIALIST [facility] Comment:Neither HIV-1 p24 An tigen nor HIV-1/HIV-2 Antibodies are detected. Blood BLOOD SPECIMEN / Unknown Venipuncture / Unknown 08/22/2020 6:32 PM TIRE SPECIALIST 08/22/2020 6:16 PM TIRE SPECIALIST Kerwin Hernandez MD LAB - HEMATOLOGY ORD ERABLES [address] [address], [facility] [phone] * TROPONIN I (08/22/2020 6:32 PM TIRE SPECIALIST) Pathologist [facility] Troponin I <0.010 <0.032 ng/mL 08/22/2020 7:23 PM [facility] Blood BLOOD SPECIMEN / Unknown Venipuncture / Unknown 08/22/2020 6:32 PM TIRE SPECIALIST 08/22/2020 6:16 PM TIRE SPECIALIST Sheryl Glover APRN-CONCENTRATOR OPERATOR LAB - CHEMISTRY ORDERABLES Performing Organization Address [facility]/ZIP Co de Phone Number [address] [address], [facility] [phone] * (ABNORMAL) CBC W AUTO DIFFERENTIAL (08/22/2020 6:32 PM TIRE SPECIALIST) [facility] WBC 7.2 3.5 - 10.5 10 3/uL 08/22/2020 6:50 PM [facility] RBC 4.77 3.90 - 5.00 10 6/uL 08/22/2020 6:50 PM [facility] Hemoglobin 14.3 12.0 - 15.5 g/dL 08/22/2020 6:50 PM [facility] Hematocrit 43.5 35.0 - 45.0 % 08/22/2020 6:50 PM [facility] MCV 91.2 81.0 - 97.0 fL 08/22/2020 6:50 PM [facility] MCH 30.0 28.0 - 34.0 pg 08/22/2020 6:50 PM [facility] MCHC 32.9 32.0 - 36.0 g/dL 08/22/2020 6:50 PM [facility] Platelet Count 300 150 - 400 10 3/uL 08/22/2020 6:50 PM [facility] RDW-SD 40.5 36.0 - 50.0 fL 08/22/2020 6:50 PM [facility] RDW-CV 12.0 11.2 - 14.8 % 08/22/2020 6:50 PM [facility] MPV 9.5 9.3 - 12.8 fL 08/22/2020 6:50 PM [facility] nRBC Absolute 0.00 0 10 3/uL 08/22/2020 6:50 PM [facility] nRBC Auto 0.0 0 /100 WBC 08/22/2020 6:50 PM [facility] Neutrophils % 54.0 35.0 - 70.0 % 08/22/2020 6:50 PM [facility] Lymphocytes % 30.5 19.7 - 55.1 % 08/22/2020 6:50 PM [facility] Monocytes % 7.6 3.0 - 15.0 % 08/22/2020 6:50 PM [facility] Eosinophils % 7.2(H) 0.0 - 6.0 % 08/22/2020 6:50 PM [facility] Basophil % 0.4 0.0 - 1.5 % 08/22/2020 6:50 PM [facility] Neutrophils Absolute 3.9 1.6 - 7.0 10 3/uL 08/22/2020 6:50 PM [facility] Lymphocyte Absolute 2.2 0.8 - 2.9 10 3/uL 08/22/2020 6:50 PM [facility] Monocytes Absolute 0.55 0.14 - 0.66 10 3/uL 08/22/2020 6:50 PM [facility] Eosinophils Absolute 0.52(H) 0.00 - 0.45 10 3/uL 08/22/2020 6:50 PM [facility] Basophils Absolute 0.03 0.00 - 0.06 10 3/uL 08/22/2020 6:50 PM [facility] Immature Granulocytes % 0.3 0.0 - 1.0 % 08/22/2020 6:50 PM [facility] Blood BLOOD SPECIMEN / Unknown Venipuncture / Unknown 08/22/2020 6:32 PM TIRE SPECIALIST 08/22/2020 6:16 PM [facility] Sheryl Glover TOOL TURRET LATHE SET UP OPERATOR-CONCENTRATOR OPERATOR LAB - HEMATOLOGY ORDERABLES [facility] [address] [place] [phone], [facility] [phone] * COMPREHENSIVE METABOLIC PANEL (08/22/2020 6:32 PM [facility]) BUN 14 7 - 26 mg/dL 08/22/2020 7:10 PM [facility] Creatinine 0.7 0.6 - 1.2 mg/dL 08/22/2020 7:10 PM [facility] Sodium 140 136 - 145 mmol/L 08/22/2020 7:10 PM [facility] Potassium 4.0 3.5 - 4.5 mmol/L 08/22/2020 7:10 PM [facility] Chloride 106 98 - 107 mmol/L 08/22/2020 7:10 PM [facility] CO2 24 22 - 29 mmol/L 08/22/2020 7:10 PM [facility] Glucose 89 70 - 115 mg/dL 08/22/2020 7:10 PM [facility] Calcium 9.2 8.4 - 10.2 mg/dL 08/22/2020 7:10 PM [facility] Protein Total 7.2 6.0 - 8.3 g/dL 08/22/2020 7:10 PM [facility] Albumin 4.2 3.4 - 5.0 g/dL 08/22/2020 7:10 PM [facility] Bilirubin Total 0.5 0.2 - 1.2 mg/dL 08/22/2020 7:10 PM [facility] Alkaline Phosphatase 97 40 - 150 Units/L 08/22/2020 7:10 PM [facility] ALT 12 0 - 55 Units/L 08/22/2020 7:10 PM [facility] AST 16 5 - 34 Units/L 08/22/2020 7:10 PM [facility] Anion Gap 14 8 - 18 08/22/2020 7:10 PM [facility] BUN/Creatinine Ratio 20 7 - 23 08/22/2020 7:10 PM [facility] Osmolality Calculated 290 270 - 300 mOsm/kg 08/22/2020 7:10 PM TIRE SPECIALIST [facility] Albumin/Globulin Ratio 1.4 1.1 - 2.3 08/22/2020 7:10 PM [facility] eGFR >60 >60 mL/min/1.7 3 m2 08/22/2020 7:10 PM TIRE SPECIALIST [facility] Blood BLOOD SPECIMEN / Unknown Venipuncture / Unknown 08/22/2020 6:32 PM TIRE SPECIALIST 08/22/2020 6:16 PM TIRE SPECIALIST Sheryl Glover TOOL TURRET LATHE SET UP OPERATOR-CONCENTRATOR OPERATOR LAB - CHEMISTRY ORDERABLES [facility] [address] [place] [address], [facility] [phone] * XR CHEST 2VW (08/22/2020 5:46 PM TIRE SPECIALIST) Anatomical Region Laterality Modality Chest Radiographic Rakel ging 08/22/2020 6:26 PM TIRE SPECIALIST Impressions 08/23/2020 9:19 AM TIRE SPECIALIST IMPRESSION: No acute pulmonary process. Dictated by Hipolito Krueger MD (Resident). Dr. ISHA Choi M.D. have personally reviewed and interpreted this examination/study. This report was electronically signed by ISHA GRANT M.D. on 08/23/2020 9:19 AM . Narrative 08/23/2020 9:19 AM TIRE SPECIALIST EXAMINATION: XR CHEST 2VW HISTORY: R07.9: Chest [...] on 08/23/2020 9:19 AM . Sheryl Glover TOOL TURRET LATHE SET UP OPERATOR-CONCENTRATOR OPERATOR DIAGNOSTIC IMAGI NG ORDERABLES * EKG 12-LEAD (08/22/2020 4:14 PM TIRE SPECIALIST) Ventricular Rate 75 BPM [facility] Atrial Rate 75 BPM [facility] P-R Interval 112 ms [facility] QRS Duration ms 82 ms [facility] Q-T Interval ms 392 ms [facility] QTC Calculation (Bezet) 437 ms [facility] Calculated P [place] 40 degrees [facility] Calculated R [place] 62 degrees [facility] Calculated T [place] 29 degrees [facility] Interpretation EKG NORMAL SINUS RHYTHM NORMAL ECG NO PREVIOUS ECGS AVAILABLE Confirmed by Mary Lazaro ([id number]) on 08/23/2020 9:14:36 PM [facility] 08/22/2020 4:14 PM TIRE SPECIALIST 08/23/2020 9:14 PM TIRE SPECIALIST Kerwin Hernandez MD ECG ORDERABLES [facility] * (ABNORMAL) STREP A SCREEN DIRECT (01/20/2011 5:15 PM CDT) Strep A Rapid POSITIVE(A ) Neg Grp A Beta Strep [facility] ENTIRE THROAT (SURFACE REGION OF NECK) / Unknown 01/20/2011 5:15 PM CDT 01/20/2011 5:19 PM CDT Kerwin Cardoza MD LAB - MICROBIOLOGY O RDBENEDICTO [facility] [address] [facility] [address] * XR SPINE SCOLIOSIS 1 VIEW STANDING (09/01/2009 8:59 AM TIRE SPECIALIST) Anatomical Region Laterality Modality Spine Other 09/01/2009 8:59 AM TIRE SPECIALIST Narrative 09/01/2009 4:15 PM TIRE SPECIALIST Exam- AP and lateral views of the [...] Jeanette ISRAEL MD Released Date Time- 09/01/091615 [employer] Trimmerbrian SHEFFIELD MD ADM- JANIS,YRIS S ATT- JANIS,YRIS [...] Jeanette ISRAEL MD Released Date Time- 09/01/091615 [employer] Trimmerbrian SHEFFIELD MD ADM- JANIS,YRIS Valenzuela ATT- JANIS,YRIS S ORD- JANIS,YRIS S LAURA- PCP- JOSELYN QURESHI- Yris Rawls MD DIAGNOSTIC IMAGING O [facility] Care Teams Singing Messenger Relationship Specialty Start Date End Date Jenny Hart, TOOL TURRET LATHE SET UP OPERATOR-CONCENTRATOR OPERATOR [address] [place] [phone] PCP - General Nurse Practitioner Family 08/22/20
--- OUTSIDE RECORDS SUMMARY | 2024-09-14 21:50 | XMS_ITS | Clinical Summary ---
Author Organization [facility] [employer] Address [address] [place] [address] Care Team Providers Care Allergist/Immunologist Name Role Phone Jenny Hart MARKETING COMMUNICATIONS MANAGER-TRANSFER AND PUMPHOUSE OPERATOR Primary Care Provider Source Comments [facility],non-owned Affiliates and Associated Physician Practices is amultiple site organization consisting of ambulatory clinics and hospital sitesin [place], [place], [place] and [place]. This disclosure is being madepursuant to the Care Everywhere program and may not contain all information available regarding this patient. Last updated 18.[facility] [employer] Allergies No known active allergies Medications * [...] Comments Blood Pressure 110/70 08/22/2020 7:30 PM INDEPENDENT PRODUCER Pulse 78 08/22/2020 4:03 PM INDEPENDENT PRODUCER Temperature 36.5 C (97.7 F) 08/22/2020 4:03 PM INDEPENDENT PRODUCER Respiratory Rate 20 08/22/2020 4:03 PM INDEPENDENT PRODUCER Oxygen Saturation 98% 08/22/2020 7:30 PM INDEPENDENT PRODUCER Inhaled Oxygen Concentration - - Weight 81.6 kg (180 lb) 08/22/2020 4:03 PM INDEPENDENT PRODUCER Height 170.2 cm (5' 7 ) 08/22/2020 4:03 PM INDEPENDENT PRODUCER Body Mass Index 28.19 08/22/2020 4:03 PM INDEPENDENT PRODUCER Plan of Treatment Health Maintenance Due Date [...] HIV-1 HIV-2 ANTIGEN/ANTIBODY STAT 08/22/2020 6:32 PM INDEPENDENT PRODUCER from Last 3 Months or Most Recently Relevant to Health Maintenance Results * HIV-1 HIV-2 ANTIGEN/ANTIBODY (08/22/2020 6:32 PM INDEPENDENT PRODUCER) HIV Antigen/Antibod y 1 & 2 Non-reacti ve Non-react xochitl 08/22/2020 8:13 PM INDEPENDENT PRODUCER [facility] Comment:Neither HIV-1 p24 An tigen nor HIV-1/HIV-2 Antibodies are detected. Blood BLOOD SPECIMEN / Unknown Venipuncture / Unknown 08/22/2020 6:32 PM INDEPENDENT PRODUCER 08/22/2020 6:16 PM INDEPENDENT PRODUCER Kerwin Hernandez MD LAB - HEMATOLOGY ORD ERABLES Performing Organization Address City/State/[facility] Co de Phone Number [facility] [address] [place] [address], [facility] [phone] from Last 3 Months or Most Recently Relevant to Health Maintenance Care Teams Allergist/Immunologist Relationship Specialty Start Date End Date Jenny Hart, MARKETING COMMUNICATIONS MANAGER-TRANSFER AND PUMPHOUSE OPERATOR [address] [place] [phone] PCP - General Nurse Practitioner Family 08/22/20
== END 2024-09-14 21:53 | disposition home or self-care (01) ==
LOC: CHSED 21:48
PROVIDERS: Emergency Provider Family Medicine; PCP Nurse Practitioner Family
DX: S92.351A Displaced fracture of fifth metatarsal bone, right foot, initial encounter for closed fracture (principal); X58.XXXA Exposure to other specified factors, initial encounter
CPT/HCPCS: 73630; 96372; 99284; J1885